=== PATIENT | male | born 1955 | race Caucasian/White ===

== ENCOUNTER 2016-03-27 08:11 | Inpatient (IN) | payer OTHER ==
[~2016-03-27] VITALS: Ht 172.7 cm; Wt 122.5 kg
--- NOTE | 2016-03-27 08:16 | NUR ---
PT TO ED C/O LEFT FLANK PAIN X 8 DAYS. PT HAD OUT PATIENT CAT SCAN YESTERDAY, WAS CALLED BY HIS MD WHO TOLD HIM HE HAD AN OBSTRUCTING KIDNEY STONE.
--- NOTE | 2016-03-27 08:24 | ED GI/GU/ABDOMINAL COMPLAINT ---
History of Present Illness General Chief Complaint: General Adult Stated Complaint: KIDNEY STONES Source: patient, family Exam Limitations: no limitations Vital Signs & Intake/Output Vital Signs & Intake/Output Vital Signs Date Time Temp Pulse Resp B/P Pulse O2 O2 Flow FiO2 Ox Delivery Rate 03/31 1118 74 124/60 02/08 0803 98.2 70 20 124/60 94 Room Air 03/31 0045 98.0 74 20 140/70 94 Room Air 03/30 1613 97.8 78 19 102/60 94 ED Intake and Output 03/31 0000 03/30 1200 Intake Total 1610 600 Output Total 900 1550 Balance 710 -950 Intake, IV 850 600 Intake, Oral 760 0 Number 0 Bowel Movements Output, Urine 900 1550 Allergies Coded Allergies: ciprofloxacin (Intermediate, skin rash 03/31/16) cefazolin (HIVES 08/21/15) red dye (HIVES 08/21/15) Reconcile Medications Aspirin (Ecotrin*) 81 MG TABLET.DR 1 TAB PO DAILY HEART HEALTH (Reported) Atorvastatin Calcium 40 MG TABLET 1 TAB PO DAILY CHOLESTEROL (Reported) Metoprolol Succ XL (Toprol XL) 25 MG TAB 2 TAB PO DAILY HEART (Reported) Ramipril 5 MG CAPSULE 1 CAP PO DAILY HEART (Reported) Triage Note: PT TO ED C/O LEFT FLANK PAIN X 8 DAYS. PT HAD OUT PATIENT CAT SCAN YESTERDAY, WAS CALLED BY HIS MD WHO TOLD HIM HE HAD AN OBSTRUCTING KIDNEY STONE. Triage Nurses Notes Reviewed? yes Onset: Gradual Duration: day(s): (6) HPI: 61 year old male who started with abdominal pain/back pain last Tuesday. Patient initially thought it was the stomach bug as he had n/v and diarrhea. Also noted change in urine color. Saw his PCP Dr. Blanc yesterday who ordered outpatient CT scan and was reported to have left sided renal stone with blockage. History of renal stones in August, had lithotripsy by Dr. Hernandez. Told at that time that he had multiple stone. Past History Travel History Traveled to [place] past 21 day No Medical History Any Pertinent Medical History? see below for history Cardiovascular: HEART DISEASE Renal: KIDNEY STONES Surgical History Surgical History: lithotripsy Psychosocial History What is your primary language Macedonian Tobacco Use: Quit >30 days ago ETOH Use: occasional use Illicit Drug Use: denies illicit drug use Family History Hx Contributory? No Review of Systems Review of Systems Constitutional: Denies: chills, fever. EENTM: Reports: no symptoms. Respiratory: Reports: no symptoms. Cardiovascular: Reports: no symptoms. GI: Reports: abdominal pain, nausea. Genitourinary: Reports: see HPI (DARK URINE). Musculoskeletal: Denies: back pain, joint pain, muscle pain, muscle stiffness. Skin: Reports: no symptoms. Neurological/Psychological: Reports: no symptoms. Hematologic/Endocrine: Denies: bruising, bleeding, polyuria, polydipsia. Immunologic/Allergic: Denies: splenectomy. All Other Systems: Reviewed and Negative Physical Exam Physical Exam General Appearance: well developed/nourished, alert, awake Head: atraumatic, normal appearance Eyes: Bilateral: normal appearance, PERRL, EOMI. Ears, Nose, Throat, Mouth: moist mucous membrane Neck: normal inspection, supple, full range of motion Respiratory: normal breath sounds, chest non-tender, no respiratory distress Cardiovascular: regular rate/rhythm Peripheral Pulses: 2+ radial (R), 2+ radial (L) Gastrointestinal: normal bowel sounds, soft, non-tender, OBESE Back: normal inspection, normal range of motion, NO CVA TENDERNESS Extremities: normal range of motion Neurologic/Psych: no motor/sensory deficits, awake, alert, oriented x 3, normal gait Skin: intact, normal color, warm/dry Core Measures ACS in differential dx? No Severe Sepsis Present: No Septic Shock Present: No Progress Differential Diagnosis: ureterolithiasis, UTI/pyelo, OBSTRUCTIVE UROPAHTY, JULIANA, INFECTION, VOLUME DEPLETION, SEPSIS, DEHYDRATION, HYPOVOLEMIA, JULIANA, SEPSIS Plan of Care: Orders Procedure Date/time Status Anticipated Discharge 03/31 UNK Active Current Medications Sig/Jayden Start time Last Medication Dose Stop Time Status Admin Amoxicillin 500 MG BID 03/31 1128 UNVr (Amoxil) Tramadol HCl 50 MG Q6P PRN 03/31 0830 AC (Ultram) Laboratory Tests 03/31/16 0630: Anion Gap 7, Estimated GFR > 60, BUN/Creatinine Ratio 17.3, Total Bilirubin 0.8, Direct Bilirubin 0.5 H, AST 176 H, ALT 318 H, Alkaline Phosphatase 152 H, Total Protein 4.9 L, Albumin 2.7 L, CBC w Diff NO MAN DIFF REQ, RBC 4.03 L, MCV 89.7, MCH 29.5, RDW 14.7 H, MPV 7.6, Gran % 72.6, Lymphocytes % 16.6 L, Monocytes % 5.5, Eosinophils % 5.0, Basophils % 0.3, Absolute Granulocytes 7.7 H, Absolute Lymphocytes 1.8, Absolute Monocytes 0.6, Absolute Eosinophils 0.5, Absolute Basophils 0, PUBS MCHC 32.9 L NS BOLUX 2, IV ZOFRNA ORDERED. IV TYLENOL, IV CIPRO ORDERED. D/W HOSPITALIST AND DR BAUM. PATIENT TO GO TO OR FROM ED AND THEN WILL GO TO THE FLOORS. LIKELY FOR STENT PLACEMENT. (TERELL DO,TODD) Initial ED EKG: NSR, INFERIOR Q WAVES, T WAVES INVERSIONS Departure Departure Time of Disposition: 948 Disposition: STILL A PATIENT Condition: Stable Clinical Impression Primary Impression: JULIANA (acute kidney injury) Secondary Impressions: Obstructive uropathy Referrals: FILI DO,ROQUE Becker (PCP/Family) Departure Forms: Customer Survey General Discharge Information Admission Note Spoke With: PIA DO,ANGELA Documentation of Exam: Documentation of any treatments & extenuating circumstances including Concerns Regarding Discharge (functional status, medication knowledge or non-compliance, living conditions, etc.) that warrant an admission rather than observation: [IV fluids, IV antibiotic and by mouth, monitor intake and output, follow-up cultures, renal consultation for possible stent versus lithotripsy]
--- NOTE | 2016-03-27 08:37 | NUR ---
IV FLUIDS INFUSING DIRECTED BLOOD AND URINE SENT TO LAB
[2016-03-27 08:48] LABS: ABSOLUTE BASOPHIL COUNT 0 /CUMM (0.0-0.2); ABSOLUTE EOSINOPHIL COUNT 0 /CUMM (0.0-0.7); ABSOLUTE GRANULOCYTE CT 10.7 /CUMM (1.4-6.5); ABSOLUTE LYMPH COUNT 0.4 /CUMM (1.2-3.4); ABSOLUTE MONOCYTE COUNT 0.4 /CUMM (0.10-0.60); BASOPHIL % 0.2 % (0.0-2.0); EOSINOPHIL % 0.3 % (0-5); GRANULOCYTE % 92.5 % (42.2-75.2); HEMATOCRIT 47.8 % (42-52); MEAN CORPUSCULAR HGB 29.6 PG (27.0-31.0); MEAN CORPUSCULAR HGB CONC 33.3 G/DL (33.0-37.0); MEAN PLATELET VOLUME 7.5 FL (7.4-10.4); PLATELET COUNT 266 /CUMM (130-400); RBC DISTRIBUTION WIDTH 14.5 % (11.5-14.5); RED BLOOD CELL CT 5.38 /CUMM (4.70-6.10); WHITE BLOOD CELL COUNT 11.6 /CUMM (4.8-10.8)
[2016-03-27] MEDS ORDERED: TOPROL XL25 M1 PO (09:26)
[2016-03-27] MEDS ORDERED: ATORVASTATIN CA40 M1 PO (09:28)
[2016-03-27] MEDS ORDERED: RAMIPRIL5 M1 PO (09:28)
[2016-03-27] MEDS ORDERED: ASPIRIN EC81 M1 PO (09:28)
--- NOTE | 2016-03-27 09:42 | NUR ---
SECOND LITER INFUSING DIRECTED PT GIVEN APAP IV FOR FEVER OF 101.8
--- NOTE | 2016-03-27 10:37 | NUR ---
BED 216-1
--- NOTE | 2016-03-27 11:03 | NUR ---
SURGICAL SCUB COMPLETED TRANSPORT HERE TO TAKE TO OR
--- NOTE | 2016-03-27 11:06 | NUR ---
SURGICAL SCRUB COMPLETED CIPRO INFUSING DIRECTED
--- NOTE | 2016-03-27 11:26 | Cons- Urology ---
General Information and HPI Consulting Request Date of Consult: 03/27/16 Requested By: Md Howard, ER Reason for Consult: left obstructed kidney with sepsis Source of Information: patient Exam Limitations: no limitations History of Present Illness: 61 y/o with left obstrect kidney due to large UPJ stone: fever, sepsis. requires stent hermelinda Allergies/Medications Allergies: Coded Allergies: cefazolin (HIVES 08/21/15) red dye (HIVES 08/21/15) Home Med List: Aspirin (Ecotrin*) 81 MG TABLET.DR 1 TAB PO DAILY HEART HEALTH (Reported) Atorvastatin Calcium 40 MG TABLET 1 TAB PO DAILY CHOLESTEROL (Reported) Metoprolol Succ XL (Toprol XL) 25 MG TAB 2 TAB PO DAILY HEART (Reported) Ramipril 5 MG CAPSULE 1 CAP PO DAILY HEART (Reported) Current Medications: Current Medications Sig/Jayden Start time Last Medication Dose Route Stop Time Status Admin Acetaminophen 0 .STK-MED ONE 03/27 0939 DC IV Acetaminophen 1,000 MG ONCE ONE 03/27 0930 DC 03/27 N/A 1 UNIT IV 03/27 0944 0942 Aspirin Buffered 81 MG DAILY 03/28 1000 AC PO Atorvastatin Calcium 40 MG DAILY 03/28 1000 AC PO Ciprofloxacin 400 MG ONCE ONE 03/27 0930 DC 03/27 IV 03/27 0931 0954 Enoxaparin Sodium 40 MG DAILY 03/27 1010 DC SC Heparin Sodium 5,000 UNIT Q8 03/27 1400 AC (Porcine) SC Lisinopril 10 MG DAILY 03/28 1000 AC PO Metoprolol Succinate 50 MG DAILY 03/28 1000 AC PO Ondansetron HCl 4 MG ONCE ONE 03/27 0900 DC 03/27 IV 03/27 0901 0900 Ondansetron HCl 0 .STK-MED ONE 03/27 0852 DC .ROUTE Patient Medication 1 UNIT ONE NR 03/27 1100 Teaching ED 03/27 1130 Patient Medication 1 UNIT ONE NR 03/27 1100 Teaching ED 03/27 1130 Patient Medication 1 UNIT ONE NR 03/27 1100 [facility] ED 03/27 1130 Sodium Chloride 1,000 ML BOLUS ONE 03/27 0900 DC 03/27 IV 03/27 0959 0942 Sodium Chloride 1,000 ML BOLUS ONE 03/27 0830 DC 03/27 IV 03/27 0929 0837 Past History Medical History Cardiovascular: HEART DISEASE Renal: KIDNEY STONES Surgical History Pertinent Surgical History: lithotripsy Psychosocial History ETOH Use: occasional use Illicit Drug Use: denies illicit drug use Employment History Retired? no Review of Systems Review of Systems Constitutional: Reports: chills. EENTM: Denies: no symptoms. Cardiovascular: Denies: no symptoms. Respiratory: Denies: no symptoms. Genitourinary: Denies: no symptoms. Musculoskeletal: Denies: no symptoms. Skin: Denies: no symptoms. Exam & Diagnostic Data Vital Signs and I&O Vital Signs Date Time Temp Pulse Resp B/P Pulse O2 O2 Flow FiO2 Ox Delivery Rate 03/27 1012 100.2 03/27 1007 100.2 104 18 96 Room Air 03/27 0947 108/60 03/27 0942 101.8 03/27 0920 101.8 100 22 105/56 96 Room Air 03/27 0840 98 03/27 0814 96.6 108 20 86/58 96 Room Air Intake & Output 03/27 1600 03/27 0800 03/27 0000 03/26 1600 03/26 0800 03/26 0000 Intake Total 2100 Output Total Balance 2100 Intake, IV 2100 Patient 270 lb Weight Physical Exam General Appearance: well developed/nourished, no apparent distress Head: atraumatic Eyes: Bilateral: normal appearance. Ears, Nose, Throat: normal pharynx Neck: normal inspection Respiratory: normal breath sounds Cardiovascular: regular rate/rhythm Gastrointestinal: normal bowel sounds Back: CVA tenderness (L) Extremities: normal inspection Skin: intact, normal color Reproductive: Normal male genitalia Last 24 Hours of Labs: Laboratory Tests 03/27 0832 Chemistry Sodium (137 - 145 mmol/L) 136 L Potassium (3.5 - 5.1 mmol/L) 4.3 Chloride (98 - 107 mmol/L) 102 Carbon Dioxide (22 - 30 mmol/L) 20 L Anion Gap (5 - 16) 14 BUN (9 - 20 mg/dL) 45 H Creatinine (0.7 - 1.2 mg/dL) 2.6 H Estimated GFR (>60 ml/min) 25 L BUN/Creatinine Ratio (7 - 25 %) 17.3 Glucose (65 - 99 mg/dL) 141 H Calcium (8.4 - 10.2 mg/dL) 8.6 Total Bilirubin (0.2 - 1.3 mg/dL) 1.4 H AST (17 - 59 U/L) 283 H ALT (21 - 72 U/L) 367 H Alkaline Phosphatase (< 127 U/L) 220 H Troponin I (<0.11 ng/ml) 0.01 Total Protein (6.3 - 8.2 g/dL) 6.1 L Albumin (3.5 - 5.0 g/dL) 3.5 Globulin (1.9 - 4.2 gm/dL) 2.6 Albumin/Globulin Ratio (1.1 - 2.2 %) 1.3 Hematology CBC w Diff MAN DIFF ORDERED WBC (4.8 - 10.8 /CUMM) 11.6 H RBC (4.70 - 6.10 /CUMM) 5.38 Hgb (14.0 - 18.0 G/DL) 15.9 Hct (42 - 52 %) 47.8 MCV (80.0 - 94.0 FL) 89.0 MCH (27.0 - 31.0 PG) 29.6 RDW (11.5 - 14.5 %) 14.5 Plt Count (130 - 400 /CUMM) 266 MPV (7.4 - 10.4 FL) 7.5 Gran % (42.2 - 75.2 %) 92.5 H Lymphocytes % (20.5 - 51.1 %) 3.5 L Monocytes % (1.7 - 9.3 %) 3.5 Eosinophils % (0 - 5 %) 0.3 Basophils % (0.0 - 2.0 %) 0.2 Absolute Granulocytes (1.4 - 6.5 /CUMM) 10.7 H Segmented Neutrophils (42.2 - 75.2 %) 87 H Band Neutrophils (0.0 - 5.0 %) 5 Absolute Lymphocytes (1.2 - 3.4 /CUMM) 0.4 L Lymphocytes (20.5 - 51.1 %) 2 L Monocytes (1.7 - 9.3 %) 5 Absolute Monocytes (0.10 - 0.60 /CUMM) 0.4 Eosinophils (0 - 5.0 %) 1 Absolute Eosinophils (0.0 - 0.7 /CUMM) 0 Absolute Basophils (0.0 - 0.2 /CUMM) 0 Platelet Estimate (ADEQUATE) VERIFIED BY SMEAR Normocytic RBCs VERIFIED Normochromic RBCs VERIFIED PUBS MCHC (33.0 - 37.0 G/DL) 33.3 Urines Urinalysis MOD H Urine Color (YEL,AMB,STR) YEL Urine Clarity (CLEAR) HAZY H Urine pH (5.0 - 8.0) 6.0 Ur Specific Seale (1.001 - 1.035) 1.020 Urine Protein (NEG,<30 MG/DL) 100 H Urine Ketones (NEG) NEG Urine Nitrite (NEG) NEG Urine Bilirubin (NEG) NEG@ICTO Urine Urobilinogen (0.1 - 1.0 EU/dl) 1.0 Ur Leukocyte Esterase (NEG) NEG Ur Microscopic SEDIMENT EXAMINED Urine RBC (0 - 5 /HPF) 1-3 Urine WBC (0 - 2 /HPF) 3-5 H Ur Epithelial Cells (NONE,FEW) FEW Granular Casts (NONE /LPF) FEW H Urine Hemoglobin (NEG) SMALL H Urine Glucose (N MG/DL) NEG Imaging Results: PATIENT: CECILE WINKLER PRESENT AGE: 60 PATIENT ACCOUNT NO: [id number] : 54 LOCATION: [facility] ORDERING PHYSICIAN: GRUPO HERNANDEZ MD SERVICE DATE: 08/22/15- EXAM TYPE: RAD - [id number] VIEW EXAMINATION: XR ABDOMEN CLINICAL INDICATION: Intraoperative imaging. COMPARISON: None. TECHNIQUE: Multiple intraoperative fluoroscopic images were obtained under the supervision of Dr. Hernandez. Total fluoroscopic time 0.4 minutes. FINDINGS/IMPRESSION: Intraoperative imaging shows progression of instrumentation for placement of a left ureteral stent. There is cannulation and retrograde opacification of the right renal collecting system, with some prominence of the right renal calyces. No extravasation of contrast. No acute complication demonstrated. Please refer to Dr. Hernandez's procedure well. Assessment/Plan Assessment/Plan left obstructed kidney with sepsis./emergent left stent Copies To: JARRET BAUM MD Consult Acknowledgment - Thank you for your consult request. Attending MD Review Statement Attending Statement Attending MD Statement: examined this patient, discuss w/resident/PA/BATTERY INSPECTOR Attending Assessment/Plan: pt with left obst, kidney with sepsis: requries stent.
--- NOTE | 2016-03-27 12:03 | History & Physical ---
PRINCESSLENAJACKI 03/27/16 1123: General Information and HPI MD Statement: I have seen and personally examined CECILE WINKLER and documented this H&P. The patient is a 61 year old M who presented with a patient stated chief complaint of [abdominal pain]. Source of Information: patient, family Exam Limitations: no limitations History of Present Illness: Patient is a 61-year-old male with past medical history of nephrolithiasis status post lithotripsy and left renal stent placement in July [address] Hernandez, hypertension, hyperlipidemia, coronary artery disease who was sent in by his PCP for obstructive uropathy. Patient stated that he has been having pain in his back since last Tuesday. The pain was at the center of his back, intermittent, 4/10 in intensity and sharp in nature. He has some nausea and epigastric discomfort with loose stools for 1 day. Pain continued and radiated to his epigastric region. He denied any fevers, chills, chest pain, palpitations, urinary discomfort, or hematuria. He has been taking Tylenol every 4 hours for the past 7 days for pain relief. He was seen by his PCPPCP Dr. Blanc yesterday who ordered outpatient CT scan and was reported to have left sided renal stone with blockage.Of note, patient has a history of renal stones and in June 2015 he had an episode of abdominal pain/obstruction resulting in bilateral stent placements in [facility]. In July 2015, he had another episode of obstructive uropathy and had a lithotripsy done by Dr. Hernandez with removal of bilateral stents, and placement of a single left-sided stent. Vital ED in the ED showed temperature of 9001.8, pulse 100, respiration 22, blood pressure 105/56, saturating 96% on room air. Labs showed a white count of 11.6 with 5 bands, sodium 136, potassium 4.3, BUN 45, creatinine 2.6(no baseline), total bili 1.4, AST 283, ALT 367, alkaline phosphatase 220, troponin negative UA: Hazy, negative nitrite, negative leukocyte esterase, 3-5 white cells, granular casts few Abdominal x-ray: Left-sided urethral stent, cannulation and opacification of right renal collecting system, with some prominence of right renal calyces. Patient received 2 L bolus normal saline, IV ciprofloxacin, IV Zofran in the day. Allergies/Medications Allergies: Coded Allergies: cefazolin (HIVES 08/21/15) red dye (HIVES 08/21/15) Home Med list Aspirin (Ecotrin*) 81 MG TABLET.DR 1 TAB PO DAILY HEART HEALTH (Reported) Atorvastatin Calcium 40 MG TABLET 1 TAB PO DAILY CHOLESTEROL (Reported) Metoprolol Succ XL (Toprol XL) 25 MG TAB 2 TAB PO DAILY HEART (Reported) Ramipril 5 MG CAPSULE 1 CAP PO DAILY HEART (Reported) Past History Travel History Traveled to [place] past 21 day No Medical History Cardiovascular: HEART DISEASE Renal: KIDNEY STONES Surgical History Surgical History: lithotripsy Past Family/Social History Psychosocial History ETOH Use: occasional use Illicit Drug Use: denies illicit drug use Review of Systems Review of Systems Constitutional: Reports: malaise, unexplained weight loss. EENTM: Reports: no symptoms. Cardiovascular: Reports: no symptoms. Respiratory: Reports: no symptoms. GI: Reports: abdominal pain, changes in stool. Genitourinary: Reports: no symptoms. Musculoskeletal: Reports: back pain. Skin: Reports: no symptoms. Neurological/Psychological: Reports: no symptoms. Exam & Diagnostic Data Last 24 Hrs of Vital Signs/I&O Vital Signs Date Time Temp Pulse Resp B/P Pulse O2 O2 Flow FiO2 Ox Delivery Rate 03/27 1012 100.2 03/27 1007 100.2 104 18 96 Room Air 03/27 0947 108/60 / 0942 101.8 / 0920 101.8 100 22 105/56 96 Room Air 03/27 0840 98 / 0814 96.6 108 20 86/58 96 Room Air Intake & Output 03/27 1600 03/27 0800 03/27 0000 Intake Total 2100 Output Total Balance 2100 Intake, IV 2100 Patient 122.47 kg Weight Physical Exam General Appearance Alert, Oriented X3, Cooperative, Mild Distress, obese Skin No Rashes, No Breakdown, No Significant Lesion HEENT Atraumatic, PERRLA, EOMI Neck Supple, No JVD Lymphatic Cervical nl Cardiovascular Regular Rate, Normal S1, Normal S2, No Murmurs Lungs Clear to Auscultation, Normal Air Movement Abdomen Normal Bowel Sounds, Soft, No Tenderness, no CVA tenderness Neurological Normal Gait, Normal Speech, Strength at 5/5 X4 Ext, Normal Tone, Sensation Intact Extremities No Clubbing, No Cyanosis, No Edema, Normal Pulses Last 24 Hrs of Labs/Juan: Laboratory Tests 03/27/16 0832: Anion Gap 14, Estimated GFR 25 L, BUN/Creatinine Ratio 17.3, Glucose 141 H, Calcium 8.6, Total Bilirubin 1.4 H, AST 283 H, ALT 367 H, Alkaline Phosphatase 220 H, Troponin I 0.01, Total Protein 6.1 L, Albumin 3.5, Globulin 2.6, Albumin/Globulin Ratio 1.3, CBC w Diff MAN DIFF ORDERED, RBC 5.38, MCV 89.0 , MCH 29.6, RDW 14.5, MPV 7.5, Gran % 92.5 H, Lymphocytes % 3.5 L, Monocytes % 3.5, Eosinophils % 0.3, Basophils % 0.2, Absolute Granulocytes 10.7 H, Segmented Neutrophils 87 H, Band Neutrophils 5, Absolute Lymphocytes 0.4 L, Lymphocytes 2 L, Monocytes 5, Absolute Monocytes 0.4, Eosinophils 1, Absolute Eosinophils 0, Absolute Basophils 0, Platelet Estimate VERIFIED BY SMEAR, Normocytic RBCs VERIFIED, Normochromic RBCs VERIFIED, PUBS MCHC 33.3, Urinalysis MOD H, Urine Color YEL, Urine Clarity HAZY H, Urine pH 6.0, Ur Specific Vernon 1.020, Urine Protein 100 H, Urine Ketones NEG, Urine Nitrite NEG, Urine Bilirubin NEG@ICTO, Urine Urobilinogen 1.0, Ur Leukocyte Esterase NEG, Ur Microscopic SEDIMENT EXAMINED, Urine RBC 1-3, Urine WBC 3-5 H, Ur Epithelial Cells FEW, Granular Casts FEW H, Urine Hemoglobin SMALL H, Urine Glucose NEG Microbiology 03/27 0934 BLOOD: Blood Culture - RECD 03/27 0924 BLOOD: Blood Culture - RECD 03/27 0825 URINE ROUT: Urine Culture - RECD Assessment/Plan Assessment: porsha is a 61-year-old male with past medical history of nephrolithiasis status post lithotripsy and left renal stent placement in July [address] Hernandez, hypertension, hyperlipidemia, coronary artery disease who was sent in by his PCP for obstructive uropathy. Vital ED in the ED showed temperature of 101.8, pulse 100, respiration 22, blood pressure 105/56, saturating 96% on room air. Labs showed a white count of 11.6 with 5 bands, sodium 136, potassium 4.3, BUN 45, creatinine 2.6(no baseline), total bili 1.4, AST 283, ALT 367, alkaline phosphatase 220, troponin negative,L lactate 1.5 UA: Hazy, negative nitrite, negative leukocyte esterase, 3-5 white cells, granular casts few Abdominal x-ray: Left-sided urethral stent, cannulation and opacification of right renal collecting system, with some prominence of right renal calyces. Patient received 2 L bolus normal saline, IV ciprofloxacin, IV Zofran in the day. Plan: 1. Sepsis secondary to left-sided obstructive uropathy: Fever, tachycardia with kidney being the source of infection. Lactate normal. X-ray evidence of right- sided hydronephrosis with left ureteral stenting. -Patient received 2 L IV normal saline boluses in the ED and IV ciprofloxacin. -Has been taken to the OR by Dr. Dueñas for emergent stent placement for relieving the obstruction. -We'll continue IV ciprofloxacin post OR. -Blood/urine cultures pending -Continue IV morphine for pain(no Tylenol for details to LFTs/no Motrin for kidney injury) -Urology consultation appreciated 2. JULIANA secondary to obstructive uropathy -Creatinine 2.7(no baseline value) -Emergent stent placement for relieving obstruction -Repeat BeP in a.m. -Avoid nephrotoxins 3. Transaminitis: Elevated LFTs. Patient drinks 1 shot of vodka every day. Frequent use of Tylenol in the last 7 days. -Repeat LFTs in a.m. -No Tylenol/no statins for now -Ultrasound abdomen if LFTs continue to remain elevated 4. Hypertension -Continue home dose of metoprolol and ramipril once sepsis resolves and BP stable. 5. Hyperlipidemia -We will hold statins for now for liver damage DVT prophylaxis subcutaneous heparin Heart healthy diet Severe pain pathway with IV morphine as needed Full code As Ranked By This Provider Problem List: 1. Ureteral stone with hydronephrosis 2. Hydronephrosis 3. Obstructive uropathy 4. JULIANA (acute kidney injury) Core Measures/Miscellaneous Acute Coronary Syndrome ACS Diagnosis: No Cerebrovascular Accident CVA/TIA Diagnosis: No Congestive Heart Failure CHF Diagnosis: No Venous Thromboembolism VTE Risk Factors: Age > 40 VTE Prophylaxis Ordered Inpt: Pharm- Heparin No Mech VTE prophylaxis d/t: No contraindications No VTE Pharm Prophylaxis d/t: No contraindications VTE Diagnosis: No VTE Type: NONE VTE Confirmed by (Test): NONE Severe Sepsis Severe Sepsis Present: No Septic Shock Septic Shock Present: No Miscellaneous Documentation Attending Case Discussed With: ANGELA PALACIO MD Primary Care Physician: ROQUE BLANC MD Patient sees these Specialists Dr. Hernandez Level of Patient Care: General Medicine ANGELA PALACIO MD 03/27/16 1837: Attending MD Review Statement Attending Statement Attending MD Statement: examined this patient, discuss w/resident/PA/COMMUNITY SERVICES OFFICER, agreed w/resident/PA/COMMUNITY SERVICES OFFICER, discussed with family, reviewed EMR data (avail), discussed with nursing, reviewed images, amended to note Attending Assessment/Plan: 61 y/o M with pmh sig for nephrolithiasis status post lithotripsy and left renal stent placement in July [address] Hernandez, hypertension, hyperlipidemia, coronary artery disease, who has been having back pain with some n/v since one week, His PCP ordered CT abd/pelvis which showed obstructing renal calculus at UPJ. Therefore pt was sent to ER where he was found to be in acute renal failure and febrile/ tachycardic. Dr. Dueñas was consulted and pt taken to OR for ureteral stent. Vital Signs Date Time Temp Pulse Resp B/P Pulse O2 O2 Flow FiO2 Ox Delivery Rate 03/27 1356 100.9 107 24 112/78 94 Room Air Room Air 03/27 1012 100.2 03/27 1007 100.2 104 18 96 Room Air 03/27 0947 108/60 03/27 0942 101.8 03/27 0920 101.8 100 22 105/56 96 Room Air 03/27 0840 98 03/27 0814 96.6 108 20 86/58 96 Room Air on exam; aox3, nad. cv; s1, s2, rrr. tachy. resp; clear abd; soft, nt, bs+ ext; no edema. Laboratory Tests 03/27 0832 Chemistry Sodium (137 - 145 mmol/L) 136 L Potassium (3.5 - 5.1 mmol/L) 4.3 Chloride (98 - 107 mmol/L) 102 Carbon Dioxide (22 - 30 mmol/L) 20 L Anion Gap (5 - 16) 14 BUN (9 - 20 mg/dL) 45 H Creatinine (0.7 - 1.2 mg/dL) 2.6 H Estimated GFR (>60 ml/min) 25 L BUN/Creatinine Ratio (7 - 25 %) 17.3 Glucose (65 - 99 mg/dL) 141 H Lactic Acid (0.7 - 2.1 mmol/L) 1.5 Calcium (8.4 - 10.2 mg/dL) 8.6 Total Bilirubin (0.2 - 1.3 mg/dL) 1.4 H AST (17 - 59 U/L) 283 H ALT (21 - 72 U/L) 367 H Alkaline Phosphatase (< 127 U/L) 220 H Troponin I (<0.11 ng/ml) 0.01 Total Protein (6.3 - 8.2 g/dL) 6.1 L Albumin (3.5 - 5.0 g/dL) 3.5 Globulin (1.9 - 4.2 gm/dL) 2.6 Albumin/Globulin Ratio (1.1 - 2.2 %) 1.3 Hematology CBC w Diff MAN DIFF ORDERED WBC (4.8 - 10.8 /CUMM) 11.6 H RBC (4.70 - 6.10 /CUMM) 5.38 Hgb (14.0 - 18.0 G/DL) 15.9 Hct (42 - 52 %) 47.8 MCV (80.0 - 94.0 FL) 89.0 MCH (27.0 - 31.0 PG) 29.6 RDW (11.5 - 14.5 %) 14.5 Plt Count (130 - 400 /CUMM) 266 MPV (7.4 - 10.4 FL) 7.5 Gran % (42.2 - 75.2 %) 92.5 H Lymphocytes % (20.5 - 51.1 %) 3.5 L Monocytes % (1.7 - 9.3 %) 3.5 Eosinophils % (0 - 5 %) 0.3 Basophils % (0.0 - 2.0 %) 0.2 Absolute Granulocytes (1.4 - 6.5 /CUMM) 10.7 H Segmented Neutrophils (42.2 - 75.2 %) 87 H Band Neutrophils (0.0 - 5.0 %) 5 Absolute Lymphocytes (1.2 - 3.4 /CUMM) 0.4 L Lymphocytes (20.5 - 51.1 %) 2 L Monocytes (1.7 - 9.3 %) 5 Absolute Monocytes (0.10 - 0.60 /CUMM) 0.4 Eosinophils (0 - 5.0 %) 1 Absolute Eosinophils (0.0 - 0.7 /CUMM) 0 Absolute Basophils (0.0 - 0.2 /CUMM) 0 Platelet Estimate (ADEQUATE) VERIFIED BY SMEAR Normocytic RBCs VERIFIED Normochromic RBCs VERIFIED PUBS MCHC (33.0 - 37.0 G/DL) 33.3 Urines Urinalysis MOD H Urine Color (YEL,AMB,STR) YEL Urine Clarity (CLEAR) HAZY H Urine pH (5.0 - 8.0) 6.0 Ur Specific Vernon (1.001 - 1.035) 1.020 Urine Protein (NEG,<30 MG/DL) 100 H Urine Ketones (NEG) NEG Urine Nitrite (NEG) NEG Urine Bilirubin (NEG) NEG@ICTO Urine Urobilinogen (0.1 - 1.0 EU/dl) 1.0 Ur Leukocyte Esterase (NEG) NEG Ur Microscopic SEDIMENT EXAMINED Urine RBC (0 - 5 /HPF) 1-3 Urine WBC (0 - 2 /HPF) 3-5 H Ur Epithelial Cells (NONE,FEW) FEW Granular Casts (NONE /LPF) FEW H Urine Hemoglobin (NEG) SMALL H Urine Glucose (N MG/DL) NEG All imaging reviewed. A/P; 1 y/o M with pmh sig for nephrolithiasis status post lithotripsy and left renal stent placement in July [address] Hernandez, hypertension, hyperlipidemia, coronary artery disease admitted with sepsis likely 2/2 to UTI, Acute renal failure 2/2 to obstructive uropathy, as well as transaminiytis. Pt had yaken large amounts of tylenol over the last week for the back pain. Pt admitted to med floor S/P Ureteral stent placement by Dr. Dueñas. Will continue IV gentle IV hydration, pain mx. Started on IV abx, will follow up on cx. Avoid nephritoxics NSAIDS. Low dose tylenol can be given for fevers. Holding Joe for now, will reevaluate in am. Abd US consistent with fatty liver. Continue other home meds. DVT Px; Hep sq. Full code.
[2016-03-27 13:56] VITALS: BP 112/78
--- NOTE | 2016-03-27 15:18 | Operative Report ---
Operative/Inv Procedure Report Surgery Date: 03/27/16 Name of Procedure: cysto: left stent insertion Pre-Operative Diagnosis: severe left renal colic, ARF. Post-Operative Diagnosis: left hydro: 7mm stone at UPJ Estimated Blood Loss: scant Surgeon/Nail Cutter: MD BAUTISTA, [facility] Anesthesia: moderate sedation Implants: [id number] BARD ONLAY STENT Specimens: NONE Complications: NONE Condition: IMPROVED:PAIN FREE Operative Indication: ARF. LEFT RENAL COLIC WITH HX STONES. Operative/Procedure Note Note: The patient was taken to the operating room and placed on the OR table in supine position. Timeout was performed, with the patient awake, in order to confirm correct:identity, procedure, antibiotics, anesthesia, and other pertinent information. After adequate anesthesia and antibiotics, the patient was placed in lithotomy stirrups, then draped and prepped in the usual surgical fashion. A 22 Latvian cystoscope sheath with 30 angle lens was inserted into the urethra without difficulty. Upon entering the prostatic urethra, the prostate was noted to have mild coapting lateral lobes, and mild to moderately enlarged middle lobe of the prostate. Upon entering the bladder, the bladder was noted to be free of tumor, free of stone, and mildly trabeculated. With clear reflux from the right ureteral orifice, and no reflux from the left despite peristalsis. Under direct visualization the left orifice was intubated with a 5 Latvian tiger -tail catheter. With fluoroscopic visualization, a gentle retrograde pyelogram was performed. The patient was noted to have a left hydronephrosis, and 7 mm UPJ filling defect. The tiger tail catheter was removed, and the contrast was noted to have delayed drainage from the left hydronephrotic kidney. The left orifice was intubated with a 0.035 Glidewire, which was advanced with fluoroscopic visualization into left renal pelvis, bypassing the UPJ stone. A 6 x 22 Bard Onlay stent was railroaded over the Glidewire, which was easily advanced into the left renal pelvis. Once the stent was in good position, the Glidewire was removed, and the stent remained in good position. The bladder was drained via the cystoscope sheath, which was subsequently removed. Urojet lidocaine was instilled into the urethra, and the penis was clamped for only 5 minutes. All sponge and instrument count were correct at the end of the case. The patient tolerated procedure well, and was taken to the recovery room in satisfactory condition. Discharge Disposition: PACU Additional Comments: PT. ADMITTED TO MEDICINE FOR HYPOTENSIVE SEPSIS AND ACUTE RENAL FAILURE CC: DONI DO,GRUPO; JARRET BAUM MD
--- NOTE | 2016-03-27 16:13 | RADIOLOGY REPORT ---
EXAMINATION: XR ABDOMEN CLINICAL INDICATION: Cystoscopy for obstruction. COMPARISON: None TECHNIQUE: 0.6 minutes of intraoperative fluoroscopy time provided. FINDINGS: Serial hard copies from an operative portable C-arm exam demonstrates a cystoscope in place. Cannulation of the left urinary collecting system retrograde injection of contrast images is no defect within the proximal ureter just beyond the UPJ. There is obstruction proximal to this finding. Stent placed. IMPRESSION: Filling defect just beyond the UPJ resulting in obstruction as above. Stent placement.
--- NOTE | 2016-03-27 17:05 | ULTRASOUND REPORT ---
EXAMINATION: US ABDOMEN LIMITED CLINICAL INFORMATION: Transaminitis; question hepatic pathology. COMPARISON: None TECHNIQUE: Real-time imaging of the right upper quadrant abdominal viscera. FINDINGS: PANCREAS: Largely obscured by overlapping bowel gas. LIVER: The liver demonstrates normal size, contour and generalized increase in echogenicity. No focal lesion or intrahepatic biliary duct dilatation. GALLBLADDER: Normal. The gallbladder is physiologically distended without evidence of stones, sludge, polyps, wall thickening or pericholecystic fluid. COMMON BILE DUCT: Normal in caliber measuring 0.6 cm in diameter. RIGHT KIDNEY: There is mild pelviectasis, without cedric hydronephrosis. No renal calculi or focal parenchymal lesions. The kidney measures 10.7 cm in maximum dimension. FREE FLUID: None. IMPRESSION: 1. There is generalized increase in hepatic echotexture, consistent with fatty infiltration or hepatocellular disease. Please correlate clinically. No focal hepatic mass or intrahepatic biliary dilatation is seen. 2. There is mild right renal pelviectasis, without cedric hydronephrosis. 3. Ultrasound evaluation of the pancreas is limited by overlapping bowel gas.
--- NOTE | 2016-03-27 18:36 | Admission Certification ---
Admission Certification Certification Statement - As attending physician, I certify that at the time of - admission, based on clinical presentation, severity of - symptoms, need for further diagnostic testing and - therapeutic interventions, and risk of adverse outcomes - without in-hospital treatment, in my clinical assessment, - this patient requires an acute hospital stay for a minimum - of two nights or longer. I have also considered psychsocial - factors such as support system, advanced age, financial - issues, cognitive issues, and failed out-patient treatments, - past re-admission history, safety of patient, and lack of - compliance as applicable. Specific rationale supporting this admission is: Patient admitted with sepsis, uti, acute renal failure 2/2 to obstructive uropathy.
[2016-03-27 23:55] VITALS: BP 86/49
--- NOTE | 2016-03-28 00:02 | NUR ---
PT HYPOTENSIVE 87/46. HR 84. AFEBRILE, ASYMPTOMATIC, DR. GABRIEL NOTIFIED, ORDERED 500 ML BOLUS. WILL RECHECK BP
[2016-03-28 01:26] VITALS: BP 78/40
--- NOTE | 2016-03-28 01:27 | NUR ---
PT STILL HYPOTENSIVE AFTER BOLUS. DR. MONSALVE NOTIFIED. PT STILL ASYMPTOMATIC. PT TO HAVE 2ND 500 NS BOLUS AT THIS TIME
[2016-03-28 03:34] VITALS: BP 100/44
[2016-03-28 07:47] VITALS: BP 95/51
--- NOTE | 2016-03-28 09:06 | PN- Housestaff ---
KELSI VALERIO MD 03/28/16 0906: Subjective Follow-up For: Obstructive uropathy Sepsis Acute kidney injury Transaminitis Subjective: Patient seen and examined. He is seen sitting upright in bed resting comfortably. He appears mildly uncomfortable but in no acute distress. He is complaining of a rash on his lower abdomen that is described as nonpainful but itchy. He denies any associated swelling or shortness of breath of his hands/ tongue/mouth. He has no reported allergy to the antibiotic. He is also complaining of hiccups ever since the surgical intervention. Additionally he is complaining of urinary frequency/urgency with minimal amounts a scant red blood when he passes urine. Otherwise he denies any headache, fever, chills, chest pain, palpitations, shortness of breath, cough, nausea, vomiting, diarrhea. No overnight events reported other than above. Review of Systems Constitutional: Reports: see HPI. Objective Last 24 Hrs of Vital Signs/I&O Vital Signs Date Time Temp Pulse Resp B/P Pulse O2 O2 Flow FiO2 Ox Delivery Rate 03/28 0923 80 106/54 03/28 0747 98.4 88 20 95/51 92 Room Air 03/28 0334 100/44 03/28 0126 86 78/40 03/27 2355 99.0 86 24 86/49 91 / 1356 100.9 107 24 112/78 94 Room Air Room Air Intake & Output 03/28 1600 03/28 0800 03/28 0000 Intake Total 2300 800 Output Total 900 600 Balance 1400 200 Intake, IV 1900 400 Intake, Oral 400 400 Number 2 Bowel Movements Output, Urine 900 600 Physical Exam General Appearance: Alert, Oriented X3, Cooperative, No Acute Distress Other Physical Findings: General -well-developed, well-nourished obese middle-aged male in no acute distress HEENT - NCAT, PERRL, EOMI, anicteric sclera Neck - Supple Cardio - S1, S2 w/o murmurs/gallops/rubs Resp - CTA bilaterally w/o wheezing/rhochi/crackles GI - soft, obese, nontender, nondistended, bowel sounds present, red uticarial puritis rash on his lower abdomen without any excoriation, induration, or drainage Neuro - Awake and alert, CN II - XII grossly intact Extremities - no edema, pulses intact Skin - Chronic skin changes in his upper/lower extremityes Current Medications: Current Medications Sig/Jayden Start time Last Medication Dose Route Stop Time Status Admin Aspirin Buffered 81 MG DAILY 03/28 1000 AC 03/28 PO 0912 Atorvastatin Calcium 40 MG 1700 03/28 1700 AC PO Atorvastatin Calcium 40 MG DAILY 03/28 1000 CAN PO Calcium Carbonate 500 MG Q6P PRN 03/28 1200 AC PO Calcium Carbonate 500 MG ONCE ONE 03/28 0515 DC 03/28 PO 03/28 0516 0522 Ciprofloxacin 400 MG Q12 03/27 2200 DC 03/27 Dextrose/Water 200 ML IV 2143 Diphenhydramine HCl 25 MG ONCE ONE 03/28 0915 DC 03/28 PO 03/28 0916 0914 Fentanyl Citrate 100 MCG .STK-MED ONE 03/27 1123 DC IM 03/27 1124 Heparin Sodium 5,000 UNIT Q8 03/27 1400 AC 03/28 (Porcine) SC 0659 Hydromorphone HCl 2 MG .STK-MED ONE 03/27 1325 DC IM 03/27 1326 Lisinopril 10 MG DAILY 03/28 1000 CAN PO Melatonin 5 MG AT BEDTIME 03/27 2200 AC 03/27 PO 2142 Meperidine HCl 50 MG .STK-MED ONE 03/27 1304 DC IM 03/27 1305 Metoclopramide HCl 5 MG Q8 03/28 0952 AC PO Metoclopramide HCl 10 MG Q8 03/28 0927 CAN PO Metoprolol Succinate 50 MG DAILY 03/28 1000 AC PO Midazolam HCl 2 MG .STK-MED ONE 03/27 1124 DC IM 03/27 1125 Morphine Sulfate 2 MG Q4P PRN 03/27 1245 AC IV Patient Medication 1 UNIT ONE NR 03/27 1100 FL Teaching ED 03/27 1130 Patient Medication 1 UNIT ONE NR 03/27 1100 FL Teaching ED 03/27 1130 Patient Medication 1 UNIT ONE NR 03/27 1100 FL Teaching ED 03/27 1130 Sodium Chloride 1,000 ML BOLUS ONE 03/28 0130 DC 03/28 IV 03/28 0229 0130 Sodium Chloride 500 ML BOLUS ONE 03/27 2345 DC 03/28 IV 03/28 0044 0002 Sodium Chloride 1,000 ML Q13H 03/27 2000 DC 03/27 IV 03/28 0859 2200 Last 24 Hrs of Lab/Juan Results Last 24 Hrs of Labs/Mics: Laboratory Tests 03/28/16 0806: Anion Gap 9, Estimated GFR 28 L, BUN/Creatinine Ratio 22.1, Total Bilirubin 0.9 , Direct Bilirubin 0.8 H, AST 165 H, ALT 240 H, Alkaline Phosphatase 177 H, Total Protein 4.6 L, Albumin 2.5 L, CBC w Diff NO MAN DIFF REQ, RBC 4.17 L, MCV 89.1, MCH 29.7, RDW 14.6 H, MPV 7.8, Gran % 82.2 H, Lymphocytes % 6.3 L, Monocytes % 10.3 H, Eosinophils % 1.1, Basophils % 0.1, Absolute Granulocytes 8.5 H, Absolute Lymphocytes 0.7 L, Absolute Monocytes 1.1 H, Absolute Eosinophils 0.1, Absolute Basophils 0, PUBS MCHC 33.3 03/27/162038: Lactic Acid 1.5 Assessment/Plan Assessment: Patient reports persistent urinary symptoms ever since his stent placement yesterday. He denies any fever, chills and otherwise feels fine other than his complaints of hiccups and new onset rash. He is under the impression that he is to be discharged home today for which he was counseled that he needs to remain in the hospital for further treatment. Ciprofloxacin was held this morning for the new onset rash and patient was given Benadryl. Blood cultures returned positive for gram-positive cocci in chains and pairs suspicious for enterococcus. Vancomycin is started this finding. Urology data security consultant follow-up recommendations still pending. Problem list: -Obstructive uropathy, status post stent -Acute kidney injury -Sepsis, now resolved -Gram-positive cocci bacteremia, on vancomycin -Transaminitis Plan: -General medicine -Monitor vital signs for hemodynamic instability and fever -Monitor for signs of allergic reaction, continue to hold fluoroquinolones -Normal saline at 75 mL per hour -Continue vancomycin -Benadryl as needed for worsening rash -Follow-up culture and sensitivities -Avoid nephrotoxic medications such as NSAIDs for acute kidney injury -Continue home medications except beta senia and WALE inhibitor -DVT prophylaxis with subcutaneous heparin -Pain pathway -Healthy diet -Full code Problem List: 1. Obstructive uropathy Pain Ratin Pain Location: Right flank Pain Goal: Pain 4 or less Pain Plan: As noted in plan Tomorrow's Labs & Rationales: Complete blood count-bacteremia BASIC metabolic panel-acute kidney injury Hepatic function panel-transaminitis PIA DO,ANGELA 03/28/16 1349: Attending MD Review Statement Attending Statement Attending MD Statement: examined this patient, discuss w/resident/PA/RETAIL INVENTORY CONTROL CLERK, agreed w/resident/PA/RETAIL INVENTORY CONTROL CLERK, reviewed EMR data (avail), discussed with nursing, discussed with case mgmt, reviewed images, amended to note Attending Assessment/Plan: Patient seen and examined, offers no complaints. Last night he had developed a rash as well as diarrhea on Cipro. Cipro was discontinued at that point. Patient's creatinine remains high and now he is bacteremic with gram-positive cocci in Nails chains likely enterococcus. At this point we have consulted infectious disease. We'll start him on vancomycin. Will continue him on gentle IV hydration and monitor his creatinine. DVT px: Heparin subcutaneous.
[2016-03-28 09:38] LABS: ABSOLUTE BASOPHIL COUNT 0 /CUMM (0.0-0.2); ABSOLUTE EOSINOPHIL COUNT 0.1 /CUMM (0.0-0.7); ABSOLUTE GRANULOCYTE CT 8.5 /CUMM (1.4-6.5); ABSOLUTE LYMPH COUNT 0.7 /CUMM (1.2-3.4); ABSOLUTE MONOCYTE COUNT 1.1 /CUMM (0.10-0.60); BASOPHIL % 0.1 % (0.0-2.0); EOSINOPHIL % 1.1 % (0-5); GRANULOCYTE % 82.2 % (42.2-75.2); MEAN CORPUSCULAR HGB 29.7 PG (27.0-31.0); MEAN CORPUSCULAR HGB CONC 33.3 G/DL (33.0-37.0); MEAN CORPUSCULAR VOLUME 89.1 FL (80.0-94.0); MEAN PLATELET VOLUME 7.8 FL (7.4-10.4); PLATELET COUNT 218 /CUMM (130-400); RBC DISTRIBUTION WIDTH 14.6 % (11.5-14.5); RED BLOOD CELL CT 4.17 /CUMM (4.70-6.10); WHITE BLOOD CELL COUNT 10.3 /CUMM (4.8-10.8)
[2016-03-28 09:41] LABS: HEMATOCRIT 37.2 % (42-52)
[2016-03-28 15:49] VITALS: BP 118/62
--- NOTE | 2016-03-28 16:01 | Cons- Infect Disease ---
General Information and HPI Consulting Request Date of Consult: 03/28/16 Requested By: ANGELA PALACIO MD Reason for Consult: Sepsis of urologic origin Source of Information: patient, family, old records History of Present Illness: This is a 61-year-old man with a history of nephrolithiasis, status post placement of bilateral ureteral stents at [facility] 9 months prior to admission, at which time he apparently developed a pruritic rash after a cephalosporin, status post ureteroscopy and laser lithotripsy with stone removal , with replacement of the left ureteral stent and removal of the right one, with Gentamicin prophylaxis, admitted on March 27 with a one week history of left sided back pain, nausea and generalized malaise, without documented fevers or chills, with outpatient workup apparently revealing acute kidney injury and obstruction of the left kidney. On admission he was febrile to 101.8 with a blood pressure 86/58. Laboratory data revealed a white blood cell count of 12, 000, BUN/creatinine 45 and 2.6, bilirubin 1.4, alk phosphatase 220, AST/ALT 283 and 367. Urinalysis 1-3 RBC/3-5 WBCs. A right upper quadrant ultrasound revealed mild right renal pelviectasis without hydronephrosis, with a physiologically distended gallbladder with no stones, sludge, polyps, wall thickening or pericholecystic fluid. He was begun on Ciprofloxacin and taken to the OR for insertion of a left ureteral stent, with a 7 mm UPJ filling defect noted. Postop he was continued on Ciprofloxacin, which was discontinued because of the development of a pruritic rash. This morning blood cultures 2 were reported positive for gram-positive cocci in pairs and chains, and, after discussion with me, he was started on Vancomycin. He appears to have defervesced overnight. At present he feels poorly but has no specific complaints other than the mildly pruritic rash. Allergies/Medications Allergies: Coded Allergies: cefazolin (HIVES 08/21/15) red dye (HIVES 08/21/15) Home Med List: Aspirin (Ecotrin*) 81 MG TABLET.DR 1 TAB PO DAILY HEART HEALTH (Reported) Atorvastatin Calcium 40 MG TABLET 1 TAB PO DAILY CHOLESTEROL (Reported) Metoprolol Succ XL (Toprol XL) 25 MG TAB 2 TAB PO DAILY HEART (Reported) Ramipril 5 MG CAPSULE 1 CAP PO DAILY HEART (Reported) Past History Travel History Traveled to [place] past 21 day No Medical History Blood Transfusion Hx: No Neurological: NONE EENT: NONE Cardiovascular: CAD (status post stents), hypertension, hyperlipidemia, HEART DISEASE Respiratory: NONE Gastrointestinal: NONE Hepatic: NONE Renal: KIDNEY STONES Musculoskeletal: NONE Psychiatric: NONE Endocrine: NONE Blood Disorders: NONE Cancer(s): NONE SEED CORE OPERATOR/Reproductive: NONE History of MRSA: No History of VRE: No History of CDIFF: No Isolation History: Standard Influenza Vaccine: 11/21/15 Surgical History Surgical History: lithotripsy CARDIAC STENT Psychosocial History Where Do You Live? Home Services at Home: None Smoking Status: Former Smoker ETOH Use: occasional use Illicit Drug Use: denies illicit drug use Review of Systems Review of Systems All Other Systems: Reviewed and Negative Exam & Diagnostic Data Last 24 Hrs of Vital Signs/I&O Vital Signs Date Time Temp Pulse Resp B/P Pulse O2 O2 Flow FiO2 Ox Delivery Rate 03/28 1549 99.7 79 21 118/62 94 Room Air 03/28 0923 80 106/54 03/28 0747 98.4 88 20 95/51 92 Room Air 03/28 0334 100/44 03/28 0126 86 78/40 03/27 2355 99.0 86 24 86/49 91 Intake & Output 03/28 1600 03/28 0800 03/28 0000 Intake Total 2300 800 Output Total 900 600 Balance 1400 200 Intake, IV 1900 400 Intake, Oral 400 400 Number 2 Bowel Movements Output, Urine 900 600 Physical Exam Other Physical Findings: He is awake and alert in no acute distress. MAXIMUM TEMPERATURE 101.8. Skin reveals a diffuse maculopapular rash. HEENT exam is negative. Neck is supple with no adenopathy. Lungs are clear. Heart regular rhythm with no murmur. Abdomen is obese, soft, nontender with positive bowel sounds. Back no CVA tenderness. Extremities no cyanosis, clubbing or edema. Neuro is without focality. Last 24 Hours of Lab Results: Laboratory Tests 03/28 03/27 089 Chemistry Sodium (137 - 145 mmol/L) 134 L Potassium (3.5 - 5.1 mmol/L) 4.0 Chloride (98 - 107 mmol/L) 107 Carbon Dioxide (22 - 30 mmol/L) 19 L Anion Gap (5 - 16) 9 BUN (9 - 20 mg/dL) 53 H Creatinine (0.7 - 1.2 mg/dL) 2.4 H Estimated GFR (>60 ml/min) 28 L BUN/Creatinine Ratio (7 - 25 %) 22.1 Lactic Acid (0.7 - 2.1 mmol/L) 1.5 Total Bilirubin (0.2 - 1.3 mg/dL) 0.9 Direct Bilirubin (< 0.4 mg/dL) 0.8 H AST (17 - 59 U/L) 165 H ALT (21 - 72 U/L) 240 H Alkaline Phosphatase (< 127 U/L) 177 H Total Protein (6.3 - 8.2 g/dL) 4.6 L Albumin (3.5 - 5.0 g/dL) 2.5 L Hematology CBC w Diff NO MAN DIFF REQ WBC (4.8 - 10.8 /CUMM) 10.3 RBC (4.70 - 6.10 /CUMM) 4.17 L Hgb (14.0 - 18.0 G/DL) 12.4 L Hct (42 - 52 %) 37.2 L MCV (80.0 - 94.0 FL) 89.1 MCH (27.0 - 31.0 PG) 29.7 RDW (11.5 - 14.5 %) 14.6 H Plt Count (130 - 400 /CUMM) 218 MPV (7.4 - 10.4 FL) 7.8 Gran % (42.2 - 75.2 %) 82.2 H Lymphocytes % (20.5 - 51.1 %) 6.3 L Monocytes % (1.7 - 9.3 %) 10.3 H Eosinophils % (0 - 5 %) 1.1 Basophils % (0.0 - 2.0 %) 0.1 Absolute Granulocytes (1.4 - 6.5 /CUMM) 8.5 H Absolute Lymphocytes (1.2 - 3.4 /CUMM) 0.7 L Absolute Monocytes (0.10 - 0.60 /CUMM) 1.1 H Absolute Eosinophils (0.0 - 0.7 /CUMM) 0.1 Absolute Basophils (0.0 - 0.2 /CUMM) 0 PUBS MCHC (33.0 - 37.0 G/DL) 33.3 Last 24 Hours of Juan Results: Blood cultures March 27 positive for gram-positive cocci in pairs and chains Urine culture March 27 negative Stool C. difficile March 28 pending Diagnostic Data Recent Imaging Findings: Right upper quadrant ultrasound March 27 reveals mild right renal pelviectasis and a physiologically distended gallbladder with no evidence of stones, sludge, polyps, wall thickening or pericholecystic fluid. Assessment/Plan Assessment/Plan Impression: This is a 61-year-old man with a history of nephrolithiasis and bilateral hydronephrosis, status post bilateral ureteral stents, status post laser lithotripsy and stone removal from the left kidney 7 months prior to admission, admitted on March 27 with a one week history of left-sided back pain and nausea after he was found to have recurrent obstruction of the left kidney and acute renal failure, found on admission to be febrile with a mild leukocytosis and acute renal failure, status post placement of a left ureteral stent yesterday, with blood cultures 2 positive for gram positive cocci in pairs and chains. His clinical picture is consistent with sepsis of urologic origin secondary to the obstructed left kidney. The most likely organism is Enterococcus and, given his allergy to cephalosporins, which apparently was manifest as a pruritic rash, it may be prudent to avoid penicillins; therefore he should be treated with Vancomycin pending further information. The current rash may be secondary to the Ciprofloxacin and this may, too, need to be avoided in the future. His elevated liver enzymes are likely secondary to sepsis, with exam and ultrasound negative for evidence of cholecystitis. Suggestion: 1. Would obtain specific information from [facility] regarding his allergy to cephalosporins 2. Review all of his current medications and discontinue all unessential ones 3. Repeat blood cultures 2 in the AM 4. Echocardiogram IF blood cultures prove to be Enterococcus 5. Vancomycin random level in the a.m. 6. Would hold on further Vancomycin, with further doses based on results of a.m. chemistries and cultures Consult Acknowledgment - Thank you for your consult request.
[2016-03-28 23:56] VITALS: BP 118/68
--- NOTE | 2016-03-29 08:17 | PN- Housestaff ---
KELSI VALERIO MD 03/29/16 0816: Subjective Follow-up For: Obstructive uropathy Sepsis Acute kidney injury Transaminitis Subjective: Patient seen and examined. He is seen sitting upright in bed resting comfortably. He appears to be in no acute distress. He does admit to a rash on his lower abdomen/groin/thighs that is reportedly itchy and mildly painful. He admits to a history of an allergy to red dye for which he cannot take certain medications, such as enteric coated aspirin. He continues to denies any shortness of breath, or lip/mouth swelling. His pain is well controlled on the current regimen and he otherwise has no complaints. He reports resolution of his hiccups. Additionally he denies any headache, fever, chills, chest pain, nausea, vomiting , diarrhea. No overnight events reported. Review of Systems Constitutional: Reports: see HPI. Objective Last 24 Hrs of Vital Signs/I&O Vital Signs Date Time Temp Pulse Resp B/P Pulse O2 O2 Flow FiO2 Ox Delivery Rate 03/29 1635 98.6 95 18 126/70 95 Room Air 03/29 1000 94 104/60 03/29 0906 98.1 95 20 118/62 94 Room Air / 2356 98.7 80 20 118/68 95 Room Air Intake & Output 03/29 1600 03/29 0800 03/29 0000 Intake Total 7103 251 1030 Output Total 450 1200 875 Balance 720 -640 145 Intake, IV 450 300 Intake, Oral 720 560 720 Output, Urine 450 1200 875 Physical Exam General Appearance: Alert, Oriented X3, Cooperative, No Acute Distress Other Physical Findings: General -well-developed, well-nourished obese middle-aged male in no acute distress HEENT - NCAT, PERRL, EOMI, anicteric sclera Neck - Supple Cardio - S1, S2 w/o murmurs/gallops/rubs Resp - CTA bilaterally w/o wheezing/rhochi/crackles GI - soft, obese, nontender, nondistended, bowel sounds present, red uticarial puritis rash on his lower abdomen without any excoriation, induration, or drainage Neuro - Awake and alert, CN II - XII grossly intact Extremities - no edema, pulses intact Skin - Chronic skin changes in his upper/lower extremities Current Medications: Current Medications Sig/Jayden Start time Last Medication Dose Route Stop Time Status Admin Aspirin 81 MG DAILY 03/30 1000 AC PO Aspirin Buffered 81 MG DAILY 03/28 1000 DC 03/29 PO 1025 Atorvastatin Calcium 40 MG 1700 03/28 1700 AC 03/29 PO 1626 Calcium Carbonate 500 MG Q6P PRN 03/28 1200 AC 03/29 PO 1631 Diphenhydramine HCl 50 MG DAILY 03/30 1000 AC PO Diphenhydramine HCl 25 MG ONCE ONE 03/29 1615 DC 03/29 PO 03/29 1616 1626 Diphenhydramine HCl 25 MG DAILY 03/29 1000 DC 03/29 PO 1025 Heparin Sodium 5,000 UNIT Q8 03/27 1400 AC 03/29 (Porcine) SC 2133 Melatonin 5 MG AT BEDTIME 03/27 2200 AC 03/29 PO 2133 Metoclopramide HCl 5 MG Q8 03/28 0952 AC 03/29 PO 2133 Metoprolol Succinate 50 MG DAILY 03/28 1000 AC PO Morphine Sulfate 2 MG Q4P PRN 03/27 1245 AC IV Patient Medication 1 ED .STK-MED ONE 03/29 1426 MT Teaching ED 03/29 1427 Sodium Chloride 1,000 ML Q13H 03/28 1200 AC 03/29 IV 0422 Vancomycin HCl 2,000 MG Q24H / 1144 AC 03/29 Dextrose/Water 500 ML IV 1246 Last 24 Hrs of Lab/Juan Results Last 24 Hrs of Labs/Mics: Laboratory Tests 03/29/16 0840: Random Vancomycin Cancelled 03/29/16 0735: Anion Gap 8, Estimated GFR 51 L, BUN/Creatinine Ratio 27.1 H, Total Bilirubin 0.8, Direct Bilirubin 0.6 H, AST 235 H, ALT 311 H, Alkaline Phosphatase 154 H, Total Protein 5.0 L, Albumin 2.6 L, CBC w Diff NO MAN DIFF REQ, RBC 4.29 L , MCV 89.2, MCH 29.8, RDW 15.1 H, MPV 8.3, Gran % 79.1 H, Lymphocytes % 9.3 L , Monocytes % 7.9, Eosinophils % 3.5, Basophils % 0.2, Absolute Granulocytes 9.7 H, Absolute Lymphocytes 1.1 L, Absolute Monocytes 1.0 H, Absolute Eosinophils 0.4, Absolute Basophils 0, PUBS MCHC 33.4, Random Vancomycin 7.6 Microbiology 03/29 924 BLOOD: Blood Culture - RECD 03/29 914 BLOOD: Blood Culture - RECD Assessment/Plan Assessment: Patient continues to report urinary pain and frequency/urgency, and denies any further hematuria. Blood cultures now demonstrating enterococcus with sensitivites pending. Vancomycin will be continued at the current dose until sensitivities are reported. Random vancomycin level was subtherapeutic. He has a persistent rash despite discontinuing Ciprofloxacin and giving benadryl; further history obtained determined that he has a red dye allergy and a similar adverse reaction to enteric coated aspirin. Enteric coated aspirin was switched to the standard baby aspirin. Urology follow up recommendations pending. Echocardiogram pending. Records obtained the patients PCP demonstrated a baseline creatinine level of 1.28 as of 02/18/16. Problem list: -Obstructive uropathy, status post stent -Acute kidney injury -Sepsis, now resolved -Gram-positive cocci bacteremia, on vancomycin -Transaminitis Plan: -General medicine -Monitor vital signs for hemodynamic instability and fever -Monitor for signs of allergic reaction, continue to hold fluoroquinolones -Normal saline at 75 mL per hour -Continue vancomycin -Benadryl as needed for worsening rash -Follow-up culture and sensitivities -Avoid nephrotoxic medications such as NSAIDs for acute kidney injury -Continue home medications except beta senia and WALE inhibitor -DVT prophylaxis with subcutaneous heparin -Pain pathway -Healthy diet -Full code Problem List: 1. Obstructive uropathy Pain Ratin Pain Location: flank, groin Pain Goal: Pain 7 or less Pain Plan: As noted in plan Tomorrow's Labs & Rationales: CBC - bacteremia BEP - acute kidney injury PIA DO,[facility] 03/29/16 1325: Attending MD Review Statement Attending Statement Attending MD Statement: examined this patient, discuss w/resident/PA/EVENT EXECUTIVE, agreed w/resident/PA/EVENT EXECUTIVE, reviewed EMR data (avail), discussed with nursing, discussed with case mgmt, reviewed images, amended to note Attending Assessment/Plan: Patient seen and examined, feels overall better today. He is growing enterococcus in the urine. He was started on vancomycin as recommended by infectious disease. The rash has improved. Vital Signs Date Time Temp Pulse Resp B/P Pulse O2 O2 Flow FiO2 Ox Delivery Rate 03/29 1000 94 104/60 03/29 0906 98.1 95 20 118/62 94 Room Air 03/28 2356 98.7 80 20 118/68 95 Room Air 03/28 1549 99.7 79 21 118/62 94 Room Air on exam; aox3, nad. cv; s1,s2, rrr. resp; clear abd; soft, nt, bs+ ext; no edema. Laboratory Tests 03/29 03/29 0840 0735 Chemistry Sodium (137 - 145 mmol/L) 137 Potassium (3.5 - 5.1 mmol/L) 4.1 Chloride (98 - 107 mmol/L) 109 H Carbon Dioxide (22 - 30 mmol/L) 20 L Anion Gap (5 - 16) 8 BUN (9 - 20 mg/dL) 38 H Creatinine (0.7 - 1.2 mg/dL) 1.4 H Estimated GFR (>60 ml/min) 51 L BUN/Creatinine Ratio (7 - 25 %) 27.1 H Total Bilirubin (0.2 - 1.3 mg/dL) 0.8 Direct Bilirubin (< 0.4 mg/dL) 0.6 H AST (17 - 59 U/L) 235 H ALT (21 - 72 U/L) 311 H Alkaline Phosphatase (< 127 U/L) 154 H Total Protein (6.3 - 8.2 g/dL) 5.0 L Albumin (3.5 - 5.0 g/dL) 2.6 L Hematology CBC w Diff NO MAN DIFF REQ WBC (4.8 - 10.8 /CUMM) 12.3 H RBC (4.70 - 6.10 /CUMM) 4.29 L Hgb (14.0 - 18.0 G/DL) 12.8 L Hct (42 - 52 %) 38.2 L MCV (80.0 - 94.0 FL) 89.2 MCH (27.0 - 31.0 PG) 29.8 RDW (11.5 - 14.5 %) 15.1 H Plt Count (130 - 400 /CUMM) 281 MPV (7.4 - 10.4 FL) 8.3 Gran % (42.2 - 75.2 %) 79.1 H Lymphocytes % (20.5 - 51.1 %) 9.3 L Monocytes % (1.7 - 9.3 %) 7.9 Eosinophils % (0 - 5 %) 3.5 Basophils % (0.0 - 2.0 %) 0.2 Absolute Granulocytes (1.4 - 6.5 /CUMM) 9.7 H Absolute Lymphocytes (1.2 - 3.4 /CUMM) 1.1 L Absolute Monocytes (0.10 - 0.60 /CUMM) 1.0 H Absolute Eosinophils (0.0 - 0.7 /CUMM) 0.4 Absolute Basophils (0.0 - 0.2 /CUMM) 0 PUBS MCHC (33.0 - 37.0 G/DL) 33.4 Toxicology Random Vancomycin (ug/ml) Cancelled 7.6 A/P; 61 y/o M with pmh sig for nephrolithiasis status post lithotripsy and left renal stent placement [place] [address] Hernandez, hypertension, hyperlipidemia, coronary artery disease admitted with sepsis likely 2/2 to UTI, Acute renal failure 2/2 to obstructive uropathy, as well as transaminitis. Patient bacteremic with enterococcus. Likely source would be the urinary tract but will get an echocardiogram as recommended by infectious disease. Continue vancomycin. We'll try to get records from [facility] about his cephalosporin allergies. Creatinine has improved on IV hydration. Continue IV fluids for another 24 hours. DVT px; hep sq.
[2016-03-29 09:06] VITALS: BP 118/62
[2016-03-29 09:24] LABS: ABSOLUTE BASOPHIL COUNT 0 /CUMM (0.0-0.2); ABSOLUTE EOSINOPHIL COUNT 0.4 /CUMM (0.0-0.7); ABSOLUTE GRANULOCYTE CT 9.7 /CUMM (1.4-6.5); ABSOLUTE LYMPH COUNT 1.1 /CUMM (1.2-3.4); BASOPHIL % 0.2 % (0.0-2.0); EOSINOPHIL % 3.5 % (0-5); GRANULOCYTE % 79.1 % (42.2-75.2); HEMATOCRIT 38.2 % (42-52); MEAN CORPUSCULAR HGB 29.8 PG (27.0-31.0); MEAN CORPUSCULAR HGB CONC 33.4 G/DL (33.0-37.0); MEAN CORPUSCULAR VOLUME 89.2 FL (80.0-94.0); MEAN PLATELET VOLUME 8.3 FL (7.4-10.4); PLATELET COUNT 281 /CUMM (130-400); RBC DISTRIBUTION WIDTH 15.1 % (11.5-14.5); RED BLOOD CELL CT 4.29 /CUMM (4.70-6.10); WHITE BLOOD CELL COUNT 12.3 /CUMM (4.8-10.8)
--- NOTE | 2016-03-29 13:36 | PN- Infect Dx ---
Subjective Subjective: Afebrile. His pruritic rash persists. He has no other complaints. He denies dysuria and has had no diarrhea overnight. Objective Last 24 Hrs of Vital Signs/I&O Vital Signs Date Time Temp Pulse Resp B/P Pulse O2 O2 Flow FiO2 Ox Delivery Rate 03/29 1000 94 104/60 03/29 0906 98.1 95 20 118/62 94 Room Air 03/28 2356 98.7 80 20 118/68 95 Room Air 03/28 1549 99.7 79 21 118/62 94 Room Air Intake & Output 03/29 1600 03/29 0800 03/29 0000 Intake Total 560 1020 Output Total 1200 875 Balance -640 145 Intake, IV 300 Intake, Oral 560 720 Output, Urine 1200 875 Physical Exam Other Physical Findings: He appears comfortable in no acute distress Skin macular papular rash persists on the trunk and extremities Lungs are clear Heart regular rhythm with no murmur Abdomen is soft, nontender with positive bowel sounds Back no CVA tenderness Results Last 24 Hours of Lab Results: Laboratory Tests 03/29 03/29 0840 0735 Chemistry Sodium (137 - 145 mmol/L) 137 Potassium (3.5 - 5.1 mmol/L) 4.1 Chloride (98 - 107 mmol/L) 109 H Carbon Dioxide (22 - 30 mmol/L) 20 L Anion Gap (5 - 16) 8 BUN (9 - 20 mg/dL) 38 H Creatinine (0.7 - 1.2 mg/dL) 1.4 H Estimated GFR (>60 ml/min) 51 L BUN/Creatinine Ratio (7 - 25 %) 27.1 H Total Bilirubin (0.2 - 1.3 mg/dL) 0.8 Direct Bilirubin (< 0.4 mg/dL) 0.6 H AST (17 - 59 U/L) 235 H ALT (21 - 72 U/L) 311 H Alkaline Phosphatase (< 127 U/L) 154 H Total Protein (6.3 - 8.2 g/dL) 5.0 L Albumin (3.5 - 5.0 g/dL) 2.6 L Hematology CBC w Diff NO MAN DIFF REQ WBC (4.8 - 10.8 /CUMM) 12.3 H RBC (4.70 - 6.10 /CUMM) 4.29 L Hgb (14.0 - 18.0 G/DL) 12.8 L Hct (42 - 52 %) 38.2 L MCV (80.0 - 94.0 FL) 89.2 MCH (27.0 - 31.0 PG) 29.8 RDW (11.5 - 14.5 %) 15.1 H Plt Count (130 - 400 /CUMM) 281 MPV (7.4 - 10.4 FL) 8.3 Gran % (42.2 - 75.2 %) 79.1 H Lymphocytes % (20.5 - 51.1 %) 9.3 L Monocytes % (1.7 - 9.3 %) 7.9 Eosinophils % (0 - 5 %) 3.5 Basophils % (0.0 - 2.0 %) 0.2 Absolute Granulocytes (1.4 - 6.5 /CUMM) 9.7 H Absolute Lymphocytes (1.2 - 3.4 /CUMM) 1.1 L Absolute Monocytes (0.10 - 0.60 /CUMM) 1.0 H Absolute Eosinophils (0.0 - 0.7 /CUMM) 0.4 Absolute Basophils (0.0 - 0.2 /CUMM) 0 PUBS MCHC (33.0 - 37.0 G/DL) 33.4 Toxicology Random Vancomycin (ug/ml) Cancelled 7.6 Last 24 Hours of Juan Results: Blood cultures 2 March 27 positive for Enterococcus and, possibly, a second gram-positive organism Stool C. difficile March 28 negative Urine culture March 27 negative Assessment/Plan Impression: Enterococcal sepsis of urologic origin status post cystoscopy and insertion of a left ureteral stent 2 days ago for a recurrent left hydronephrosis secondary to an obstructing stone, with temperatures now normal but with white blood cell count slightly elevated. There is a slight increase in the eosinophils on his differential, which is likely secondary to his rash, which is presumably secondary to Ciprofloxacin. He is currently on Vancomycin which may need to be continued even if the Enterococcus is sensitive to Ampicillin given his history of a pruritic rash on Cefazolin on his recent hospitalization at [facility]. Suggestion: 1. Would obtain further information from [facility] regarding his pruritic rash and from his primary care physician regarding his antibiotic allergies 2. Review all of his current medications and discontinue all unessential ones 3. Echocardiogram 4. Await Urology follow-up 5. Continue Vancomycin 2 g IV every 24 hours pending final cultures
[2016-03-29 16:35] VITALS: BP 126/70
--- NOTE | 2016-03-29 17:48 | PN- Urology ---
Subjective Subjective: pt doing better since left stent placed. is eager to have surgeyr for it. Review of Systems Constitutional: Reports: no symptoms. EENTM: Reports: no symptoms. Cardiovascular: Reports: no symptoms. Respiratory: Reports: no symptoms. Gastrointestinal: Reports: no symptoms. Genitourinary: Reports: frequency, urgency. Musculoskeletal: Reports: back pain. Skin: Reports: no symptoms. Neurological/Psychological: Reports: no symptoms. Hematologic/Endocrine: Reports: no symptoms. Immunologic/Allergic: Reports: no symptoms. Objective Vital Signs and I&Os Vital Signs Date Time Temp Pulse Resp B/P Pulse O2 O2 Flow FiO2 Ox Delivery Rate 03/29 1635 98.6 95 18 126/70 95 Room Air 03/29 1000 94 104/60 03/29 0906 98.1 95 20 118/62 94 Room Air 03/28 2356 98.7 80 20 118/68 95 Room Air Intake & Output 03/29 1600 03/29 0800 02/ 0000 / 1600 03/28 0800 03/28 0000 Intake Total 5982 109 8185 1170 2300 800 Output Total 450 1200 875 650 900 600 Balance 720 -640 569 900 7790 200 Intake, IV 450 584 228 9322 400 Intake, Oral 720 560 720 720 400 400 Number 2 Bowel Movements Output, Urine 450 1200 875 650 900 600 Physical Exam General Appearance: well developed/nourished, no apparent distress, alert, awake , comfortable Head: atraumatic, normal appearance Ears, Nose, Throat: normal ENT inspection Respiratory: no respiratory distress Abdomen: soft, non-tender Neurologic/Psychiatric: awake, alert, oriented x 3 Skin: intact, normal color, warm/dry Assessment/Plan Assessment/Plan pt with left renal stone 12mm in size at [facility] with urospesis s/p stent placement over the weekend. feeling much better. Keep him NPO/IVF for ESWL in the morning. Discussed the r/b/a of the surgeyr. Problem List: 1. Obstructive uropathy 2. Hydronephrosis 3. Ureteral stone with hydronephrosis 4. JULIANA (acute kidney injury) Core Measures/Miscellaneous Venous Thromboembolism VTE Risk Factors: Acute medical illness VTE Contraindications: No Contraindications VTE Prophylaxis Ordered Inpt: Pharm- Heparin VTE Diagnosis: No VTE Type: NONE VTE Confirmed by (Test): NONE Beta Shara Is Beta Shara a Home Med? No Antibiotics Is Patient on Antibiotics? Yes
[2016-03-30 00:01] VITALS: BP 132/78
--- NOTE | 2016-03-30 07:18 | PN- Housestaff ---
KELSI VALERIO MD 03/30/16 0718: Subjective Follow-up For: Obstructive uropathy Sepsis Acute kidney injury Transaminitis Subjective: Patient seen and examined. He is seen lying upright on a strecher about to be taken down for his procedure this morning. He appears to be in no acute distress. He reports that he had a headache yesterday evening for which he was given IV tylenol, as he cannot have the pill due to the red dye. He admits that his urination is still somewhat painful with frequeny/urgency but is no longer bloody. He rash on his belly appears better to him this morning but the rash on his groin and legs is still itchy and bothersome. Otherwise he slept well and has no complaints. Additionally he denies any fever, chills, chest pain, shortness of breath, nausea, vomiting, diarrhea. No overnight events reported. Review of Systems Constitutional: Reports: see HPI. Objective Last 24 Hrs of Vital Signs/I&O Vital Signs Date Time Temp Pulse Resp B/P Pulse O2 O2 Flow FiO2 Ox Delivery Rate 03/30 0001 98.5 89 20 132/78 94 Room Air 03/29 1635 98.6 95 18 126/70 95 Room Air 03/29 1000 94 104/60 03/29 0906 98.1 95 20 118/62 94 Room Air Intake & Output 03/30 0800 03/30 0000 03/29 1600 Intake Total 080 626 3908 Output Total 1250 950 450 Balance -650 -725 720 Intake, IV 600 225 450 Intake, Oral 0 720 Output, Urine 1250 950 450 Physical Exam General Appearance: Alert, Oriented X3, Cooperative, No Acute Distress Other Physical Findings: General -well-developed, well-nourished obese middle-aged male in no acute distress HEENT - NCAT, PERRL, EOMI, anicteric sclera Neck - Supple Cardio - S1, S2 w/o murmurs/gallops/rubs Resp - CTA bilaterally w/o wheezing/rhochi/crackles GI - soft, obese, nontender, nondistended, bowel sounds present, red uticarial puritic rash on his lower abdomen/groin/thighs without any excoriation, induration, or drainage Neuro - Awake and alert, CN II - XII grossly intact Extremities - no edema, pulses intact Skin - Chronic skin changes in his upper/lower extremities Current Medications: Current Medications Sig/Jayden Start time Last Medication Dose Route Stop Time Status Admin Acetaminophen 650 MG Q4P PRN 03/30 0600 DC PO Acetaminophen 1,000 MG ONCE PRN 03/30 0600 AC 03/30 IV 03/30 1200 0606 Aspirin 81 MG DAILY 03/30 1000 AC PO Aspirin Buffered 81 MG DAILY 03/28 1000 DC 03/29 PO 1025 Atorvastatin Calcium 40 MG 1700 03/28 1700 AC 03/29 PO 1626 Calcium Carbonate 500 MG .STK-MED ONE 03/29 1628 DC PO 03/29 1629 Calcium Carbonate 500 MG Q6P PRN 03/28 1200 AC 03/29 PO 1631 Diphenhydramine HCl 50 MG DAILY 03/30 1000 AC PO Diphenhydramine HCl 25 MG ONCE ONE 03/29 2200 DC 03/29 IV 03/29 2201 2324 Diphenhydramine HCl 25 MG ONCE ONE 03/29 1615 DC 03/29 PO 03/29 1616 1626 Diphenhydramine HCl 25 MG DAILY 03/29 1000 DC 03/29 PO 1025 Heparin Sodium 5,000 UNIT Q8 03/27 1400 AC 03/30 (Porcine) SC 0547 Melatonin 5 MG AT BEDTIME 03/27 2200 AC 03/29 PO 2133 Metoclopramide HCl 5 MG Q8 03/28 0952 DC 03/30 PO 0547 Metoprolol Succinate 50 MG DAILY 03/28 1000 AC PO Morphine Sulfate 2 MG Q4P PRN 03/27 1245 AC IV Patient Medication 1 ED .STK-MED ONE 03/29 1426 NV Teaching ED 03/29 1427 Sodium Chloride 1,000 ML Q13H 03/28 1200 AC 03/30 IV 0547 Vancomycin HCl 2,000 MG Q24H / 1144 AC 03/29 Dextrose/Water 500 ML IV 1246 Last 24 Hrs of Lab/Juan Results Last 24 Hrs of Labs/Mics: Laboratory Tests 03/30/16 0628: Sodium Pending, Potassium Pending, Chloride Pending, Carbon Dioxide Pending, Anion Gap Pending, BUN Pending, Creatinine Pending, BUN/Creatinine Ratio Pending , CBC w Diff Pending, WBC Pending, RBC Pending, Hgb Pending, Hct Pending, MCV Pending, MCH Pending, RDW Pending, Plt Count Pending, MPV Pending, PUBS MCHC Pending 03/29/16 0840: Random Vancomycin Cancelled Microbiology 03/29 0925 BLOOD: Blood Culture - RECD 03/29 914 BLOOD: Blood Culture - RECD Assessment/Plan Assessment: Patient was evaluation by Dr. Hernandez last evening whom decided the patient would benefit from an ESWL procedure in attempt to break up the obstructive caculi. He was made NPO in anticipation of this and continued on IV fluids. Enterococcus sensitivites are still pending, patient is continued on Vancomycing. His rash is still present but appears improved and is subjectively improving. Echocardiogram and [facility] Records still pending. Obstructive Uropathy: History of renal calculi with stenting and ESWL most recently July 2015. -Monitor I&Os -Pain control -ESWL today -Ureter stent in place -Urology Consult Acute Kidney Injury: Baseline creatinine 1.28 as of 02/18/16 according to PCP records. Elevated to 2.4 on admission. Most likely secondary to acute obstruction -Avoid nephrotoxic medications such as NSAIDs for acute kidney injury -Normal Saline @ 75mL/hr -Hold ACEi until kidney function at baseline -Daily BEP Enterococcal Bacteremia: Most likely secondary to ureter obstruction and surgical manipulation. Blood cultures positive times two. -Vancomycin 2g IV Daily -Monitor for signs of hemodynamic instability or fever -ID Consult -Follow up culture & sensitivities -Follow up echocardiogram New onset erythematous/pruritic rash: Patient has documented history of an allergy to cefazol, wool, and red dye. Patient developed rash after starting on Ciprofloxacin, which was subsequently discontinued. The enteric coated aspirin he was receiving in the hospital also reported contains red dye, which was converted to a non coated formula. PCP records do not demonstrate any other previously given Cephalosporin. -Benadryl 50mg PO Daily -Follow up records from [facility] Hyperlipidemia - atorvastatin 40mg POI Daily CAD - Aspirin 81mg PO Daily Pain Plan: -Acetaminophen 1g IV PRN -Morphine 2g IV Q4H PRN Pain 7-10 Diet - Healthy diet DVT prophylaxis - subcutaneous heparin Code Status - Full code Problem List: 1. Obstructive uropathy Pain Ratin Pain Location: flank groin Pain Goal: Pain 7 or less Pain Plan: As noted in plan Tomorrow's Labs & Rationales: CBC - bacteremia BEP - acute kidney injury LFTs - monitor of transaminitis RICHARD DO,GISELLE 03/30/16 1439: Attending MD Review Statement Attending Statement Attending MD Statement: examined this patient, discuss w/resident/PA/ROTARY DUMP OPERATOR, agreed w/resident/PA/ROTARY DUMP OPERATOR, reviewed EMR data (avail) Attending Assessment/Plan: Patient seen and examined. Plan of care discussed with the medical team and the patient. Available lab work and radiology test reports were reviewed. Patient underwent a lithotripsy procedure today. His currently feeling well and denies any pain fever chills. His vital signs have been stable. Abdomen soft nontender and chest exam is clear. The BBC count is 10.5 and hematocrit 35.7. Chemistry labs show decreasing BUN to 27. His chloride has increased to 109. Urine culture shows growth of enterococcus. Sensitivities are currently pending. Assessment and plan * Urosepsis due to enterococcus * Nephrolithiasis status post lithotripsy * Acute renal failure improving and now creatinine is 1.2 * Hyperlipidemia Plan * If patient is able to take adequate by mouth fluid please discontinue saline * Recheck LFTs tomorrow * Recheck chloride and BUN tomorrow * Continue vancomycin * Await sensitivities of enterococcus
[2016-03-30 08:04] LABS: ABSOLUTE BASOPHIL COUNT 0 /CUMM (0.0-0.2); ABSOLUTE EOSINOPHIL COUNT 0.6 /CUMM (0.0-0.7); ABSOLUTE GRANULOCYTE CT 7.7 /CUMM (1.4-6.5); ABSOLUTE LYMPH COUNT 1.5 /CUMM (1.2-3.4); ABSOLUTE MONOCYTE COUNT 0.7 /CUMM (0.10-0.60); BASOPHIL % 0.2 % (0.0-2.0); EOSINOPHIL % 5.3 % (0-5); GRANULOCYTE % 73.5 % (42.2-75.2); HEMATOCRIT 35.7 % (42-52); MEAN CORPUSCULAR HGB 29.8 PG (27.0-31.0); MEAN CORPUSCULAR HGB CONC 33.6 G/DL (33.0-37.0); MEAN CORPUSCULAR VOLUME 88.8 FL (80.0-94.0); MEAN PLATELET VOLUME 7.6 FL (7.4-10.4); PLATELET COUNT 321 /CUMM (130-400); RBC DISTRIBUTION WIDTH 14.7 % (11.5-14.5); RED BLOOD CELL CT 4.02 /CUMM (4.70-6.10); WHITE BLOOD CELL COUNT 10.5 /CUMM (4.8-10.8)
[2016-03-30 08:09] VITALS: BP 120/68
--- NOTE | 2016-03-30 08:59 | NUR ---
NURSING NOTE: PATIENT TRANSPORTED TO OR BY [facility] @ 0739 FOR ESWL. A&O X 3 WITH NO C/O PAIN OR DISCOMFORT. SPO2 95% ON RA. IV #24 LF INTACT AND WORKING. NS @ 75ML/HR STOPPED @ 0739.
--- NOTE | 2016-03-30 09:35 | Operative Report ---
Operative/Inv Procedure Report Surgery Date: 03/30/16 Name of Procedure: left extracorporeal shockwave lithotripsy Pre-Operative Diagnosis: left renal UPJ stone Post-Operative Diagnosis: same Estimated Blood Loss: scant Surgeon/Hydrologic Engineer: Lilibeth Hernandez Anesthesia: local monitored anesthesi Complications: none Condition: stable Operative Indication: large left renal stone causing obstruction prior to stent placement Operative/Procedure Note Note: 61yo male with a hx of kidney stones s/p URS laser and stent in 08/06 who was stone free. He subsequently developed another stone in the interim and it caused obstruction, hydronephrosis and sepsis. He had an emergency left stent placed over the weekend by Dr. Dueñas. He was consented to an ESWL. He and his wanted to stone treated during his hospital stay. A laser is not available for URS on such short notice and given the location and size of the stone, ESWL is a good option. He is on ASA however and he was cautioned that his risk of bleeding following the surgery including a hematoma formation is greater. He understood and wished to proceed. All questions were answered. He was placed on the operating room table in the supine position. The stone was localized in the renal pelvis and it was faint circular stone. This was shocked with 2500 shocks at a slow rate increasing it as the procedure progressed. Power ranged from 1-20 and total shocks were 2500. The stone was seen to fragment nicely and change in character from the preop character. Patient tolerated the procedure well. Findings: 12mm stone in the left renal pelvis, faint Discharge Disposition: PACU
--- NOTE | 2016-03-30 15:34 | Patient Discharge Instructions ---
Discharge Instructions General Discharge Information Special Instructions: Take amoxicillin as directed to complete a 14 day total course of antibiotics. Monitor for signs of allergic reaction such as shortness of breath, swelling of your lips or tongue, or diffuse worsening rash.. Continue to take Benadryl 25 mg by mouth daily while on antibiotics. Follow-up with your primary care provider after discharge in regards to your recent hospitalization and elevated liver function tests. Follow-up with your part maker after discharge in regards to your recent echocardiogram. Acute Coronary Syndrome Inclusion Criteria At DC or during hospital stay patient has or had the following: ACS DIAGNOSIS No Discharge Core Measures Meds if any: Prescribed or Continued at Discharge Meds if any: NOT Prescribed or Continued at Discharge Congestive Heart Failure Inclusion Criteria At DC or during hospital stay patient has or had the following: CHF DIAGNOSIS No Discharge Core Measures Meds if any: Prescribed or Continued at Discharge Meds if any: NOT Prescribed or Continued at Discharge Cerebrovascular accident Inclusion Criteria At DC or during hospital stay patient has or had the following: CVA/TIA Diagnosis No Discharge Core Measures Meds if any: Prescribed or Continued at Discharge Meds if any: NOT Prescribed or Continued at Discharge Venous thromboembolism Inclusion Criteria VTE Diagnosis No VTE Type NONE VTE Confirmed by (Test) NONE Discharge Core Measures - Per Current guidelines, there needs to be overlap - treatment for the first 5 days of Warfarin therapy. - If discharged on Warfarin prior to 5 days of - overlap therapy, the patient will need to be - assessed for post discharge needs including - *Post discharge parental anticoagulation - *Warfarin and/or parental anticoagulation education - *Follow up date to check INR post discharge At least 5 days overlap therapy as Inpatient No Meds if any: Prescribed or Continued at Discharge Note: Overlap Therapy is Warfarin and Anticoagulant Meds if any: NOT Prescribed or Continued at Discharge
--- NOTE | 2016-03-30 16:08 | PN- Infect Dx ---
Subjective Subjective: Afebrile without complaints. His rash persists, mildly pruritic. He notes mild dysuria which he attributes to the stent. Objective Last 24 Hrs of Vital Signs/I&O Vital Signs Date Time Temp Pulse Resp B/P Pulse O2 O2 Flow FiO2 Ox Delivery Rate 03/30 1035 80 120/68 03/30 0809 98.2 80 20 120/68 95 Room Air 03/30 0001 98.5 89 20 132/78 94 Room Air 03/29 1635 98.6 95 18 126/70 95 Room Air Intake & Output 03/30 1600 03/30 0800 03/30 0000 Intake Total 1270 600 225 Output Total 300 1250 950 Balance 970 -650 -725 Intake, IV 750 600 225 Intake, Oral 520 0 Number 0 Bowel Movements Output, Urine 300 1250 950 Physical Exam Other Physical Findings: He appears comfortable in no acute distress Lungs are clear Heart regular rhythm with no murmur Back no CVA tenderness Results Last 24 Hours of Lab Results: Laboratory Tests 03/30 627 Chemistry Sodium (137 - 145 mmol/L) 139 Potassium (3.5 - 5.1 mmol/L) 4.1 Chloride (98 - 107 mmol/L) 109 H Carbon Dioxide (22 - 30 mmol/L) 23 Anion Gap (5 - 16) 7 BUN (9 - 20 mg/dL) 27 H Creatinine (0.7 - 1.2 mg/dL) 1.2 Estimated GFR (>60 ml/min) > 60 BUN/Creatinine Ratio (7 - 25 %) 22.5 Hematology CBC w Diff NO MAN DIFF REQ WBC (4.8 - 10.8 /CUMM) 10.5 RBC (4.70 - 6.10 /CUMM) 4.02 L Hgb (14.0 - 18.0 G/DL) 12.0 L Hct (42 - 52 %) 35.7 L MCV (80.0 - 94.0 FL) 88.8 MCH (27.0 - 31.0 PG) 29.8 RDW (11.5 - 14.5 %) 14.7 H Plt Count (130 - 400 /CUMM) 321 MPV (7.4 - 10.4 FL) 7.6 Gran % (42.2 - 75.2 %) 73.5 Lymphocytes % (20.5 - 51.1 %) 14.0 L Monocytes % (1.7 - 9.3 %) 7.0 Eosinophils % (0 - 5 %) 5.3 H Basophils % (0.0 - 2.0 %) 0.2 Absolute Granulocytes (1.4 - 6.5 /CUMM) 7.7 H Absolute Lymphocytes (1.2 - 3.4 /CUMM) 1.5 Absolute Monocytes (0.10 - 0.60 /CUMM) 0.7 H Absolute Eosinophils (0.0 - 0.7 /CUMM) 0.6 Absolute Basophils (0.0 - 0.2 /CUMM) 0 PUBS MCHC (33.0 - 37.0 G/DL) 33.6 Last 24 Hours of Juan Results: Blood cultures March 27 positive for Enterococcus sensitive to Ampicillin and possibly a second gram-positive organism Blood cultures March 29 negative Assessment/Plan Impression: Doing well, with temperatures and white blood cell count now normal, on Vancomycin now Day 2 of treatment for Enterococcal sepsis of urologic origin status post cystoscopy and insertion of a left ureteral stent 3 days ago for a recurrent left hydronephrosis secondary to an obstructing stone and status post left ESWL earlier today. His eosinophil percentage on his differential continues to increase, presumably secondary to the Ciprofloxacin, which was felt to be the cause of his rash. Of note his records from his hospitalization in [facility] in July 2015 were reviewed, and it appears he received Ciprofloxacin and not a cephalosporin. There was no mention of any rash, though this was again discussed with the patient who does report a rash during that hospitalization. It appears that the rash may have been secondary to the Ciprofloxacin, which would explain the rash on this admission after reexposure to this antibiotic. It would appear, therefore, that he does not have any cephalosporin allergy; therefore, depending on his final blood cultures, he may be able to be treated with a penicillin, such as Ampicillin or Amoxicillin. Suggestion: 1. Follow-up final blood cultures 2. Follow-up Echocardiogram 3. Continue Vancomycin, but as noted above, should be able to adjust antibiotics once the blood cultures are finalized
[2016-03-30 16:13] VITALS: BP 102/60
--- NOTE | 2016-03-30 18:16 | ECHOCARDIOGRAM REPORT ---
CECILE WINKLER Age: 61 : 1955 Gender: M Exam Date: 03/30/2016 16:28 Exam Location: [address] [place] [address] Ht (in): 68 Wt (lb): 270 BSA: 2.48 BP: 120 / 68 Ordering Physician: KELSI VALERIO MD Referring Physician: KELSI VALERIO MD Technologist: Medina Pedersen [facility] Room Number: [id number] Indications: HYPERTENSION Rhythm: Sinus Technical Quality: Good FINDINGS Left Ventricle The left ventricle is upper normal limits in diameter. There is moderate concentric left ventricular hypertrophy. The interventricular septum appears to contract well. The inferior wall except for the very proximal part is akinetic. The lateral and posterior liriano are hypokinetic. Overall ventricular systolic function is mild to moderately decreased. Estimated `ejection fraction is 35-40%. Normal left ventricular diastolic filling pattern for age. Right Ventricle The right ventricle is normal in size and function. Right Atrium The right atrium is normal in size. Left Atrium The left atrium is normal in size. The interatrial septum is intact. Mitral Valve Mild thickening/calcification of the mitral valve leaflets. Mild mitral regurgitation. Aortic Valve Structurally normal aortic valve without significant sclerosis or stenosis. There is no aortic regurgitation. Tricuspid Valve The tricuspid valve is normal in structure and function. There is trace tricuspid regurgitation. Unable to estimate the right ventricular systolic pressure. Pulmonic Valve Structurally normal pulmonic valve. There is trace pulmonic regurgitation. Pericardium Normal pericardium without effusion. No pleural effusion. Great Vessels Normal aortic root dimension. The aortic arch and great vessels are well seen and are normal. CONCLUSIONS The left ventricle is upper normal limits in diameter. There is moderate concentric left ventricular hypertrophy. The interventricular septum appears to contract well. The inferior wall except for the very proximal part is akinetic. The lateral and posterior liriano are hypokinetic. Overall ventricular systolic function is mild to moderately decreased. Estimated `ejection fraction is 35-40%. The left atrium is normal in size. Mild thickening/calcification of the mitral valve leaflets. Mild mitral regurgitation. Structurally normal aortic valve without significant sclerosis or stenosis. Unable to estimate the right ventricular systolic pressure. No obvious valvular vegetations are seen on this study. GEO may be useful if clinically indicated. No previous studies were available for comparison. Aguilar Brush M.D. (Electronically Signed) Final Date: 30 March 2016 18:15 MEASUREMENTS (Male / Female) Normal Values 2D ECHO LV Diastolic Diameter PLAX 5.8 cm 4.2 - 5.9 / 3.9 - 5.3 cm LV Systolic Diameter PLAX 4.7 cm 2.1 - 4.0 cm LV Fractional Shortening PLAX 19.0 % 25 - 46 % LV Ejection Fraction 2D Teich 38.5 % IVS Diastolic Thickness 1.5 cm LVPW Diastolic Thickness 1.5 cm LV Relative Wall Thickness 0.5 RV Internal Dim ED PLAX 2.5 cm 1.9 - 3.8 cm LVOT Diameter 2.3 cm Aortic Root Diameter 3.1 cm LA Systolic Diameter LX 4.2 cm 3.0 - 4.0 / 2.7 - 3.8 cm LA Volume 25.0 cm 18 - 58 / 22 - 52 cm Ascending Aorta Diameter 3.2 cm DOPPLER AV Peak Velocity 116.0 cm/s AV Peak Gradient 5.4 mmHg AV Mean Velocity 72.5 cm/s AV Mean Gradient 3.0 mmHg AV Velocity Time Integral 18.3 cm LVOT Peak Velocity 107.0 cm/s LVOT Peak Gradient 4.6 mmHg LVOT Mean Velocity 67.0 cm/s LVOT Mean Gradient 2.0 mmHg LVOT Velocity Time Integral 19.0 cm LVOT Stroke Volume 78.9 cm AV Area Cont Eq vti 4.3 cm AV Area Cont Eq pk 3.8 cm MV Peak Velocity 76.5 cm/s MV Peak Gradient 2.3 mmHg MV Mean Velocity 46.0 cm/s MV Mean Gradient 1.0 mmHg Mitral E Point Velocity 56.7 cm/s Mitral A Point Velocity 55.9 cm/s Mitral E to A Ratio 1.0 MV PHT Velocity 67.2 cm/s MV Deceleration Carlton 201.0 cm/s MV Pressure Half Time 100.3 ms MV Area PHT 2.2 cm MV Deceleration Time 269.0 ms PV Peak Velocity 131.0 cm/s PV Peak Gradient 6.9 mmHg PV Mean Velocity 83.9 cm/s PV Mean Gradient 3.0 mmHg PV Velocity Time Integral 22.1 cm LV E' Lateral Velocity 8.0 cm/s Mitral E to LV E' Lateral Ratio 7.1 LV E' Septal Velocity 5.6 cm/s Mitral E to LV E' Septal Ratio 10.2
[2016-03-31 00:45] VITALS: BP 140/70
--- NOTE | 2016-03-31 07:11 | PN- Housestaff ---
KELSI VALERIO MD 03/31/16 0710: Subjective Follow-up For: Obstructive uropathy Sepsis Acute kidney injury Transaminitis Subjective: Patient seen and examined. He is seen sitting upright in bed resting comfortably. He appears to be in no acute distress. He reports resolution of his urinary frequency/urgency/hematuria. He does admit that the rash on his lower abdomen has disappeared and is no longer itchy, but is still present on his groin/thighs and is persistently itchy. Overnight he reports having a "headache" for which she was given intravenous acetaminophen that did not offer him relief, but was eventually given tramadol that seemed to solve his symptoms. He states that he feels well and is requesting to go home today. Additionally he denies any further headache, fever, chills, chest pain, palpitations, shortness of breath, cough, nausea, vomiting, diarrhea. No overnight events reported other than above. Review of Systems Constitutional: Reports: see HPI. Objective Last 24 Hrs of Vital Signs/I&O Vital Signs Date Time Temp Pulse Resp B/P Pulse O2 O2 Flow FiO2 Ox Delivery Rate 03/31 1118 74 124/60 03/31 0803 98.2 70 20 124/60 94 Room Air 03/31 0045 98.0 74 20 140/70 94 Room Air 03/30 1613 97.8 78 19 102/60 94 Intake & Output 03/31 1600 03/31 0800 03/31 0000 Intake Total 340 Output Total 925 900 Balance -925 -560 Intake, IV 100 Intake, Oral 240 Output, Urine 925 900 Physical Exam General Appearance: Alert, Oriented X3, Cooperative, No Acute Distress Other Physical Findings: General -well-developed, well-nourished obese middle-aged male in no acute distress HEENT - NCAT, PERRL, EOMI, anicteric sclera Neck - Supple Cardio - S1, S2 w/o murmurs/gallops/rubs Resp - CTA bilaterally w/o wheezing/rhochi/crackles GI - soft, obese, nontender, nondistended, bowel sounds present, red uticarial puritic rash on his groin/thighs without any excoriation, induration, or drainage Neuro - Awake and alert, CN II - XII grossly intact Extremities - no edema, pulses intact Skin - Chronic skin changes in his upper/lower extremities Current Medications: Current Medications Sig/Jayden Start time Last Medication Dose Route Stop Time Status Admin Acetaminophen 1,000 MG ONCE ONE 03/30 2029 DC 03/30 N/A 1 UNIT IV 03/30 2044 2043 Acetaminophen 1,000 MG ONCE PRN 03/30 0600 DC 03/30 IV 03/30 1200 0606 Aspirin 81 MG DAILY 03/30 1000 AC 03/31 PO 1117 Atorvastatin Calcium 40 MG 1700 03/28 1700 AC 03/30 PO 1625 Calcium Carbonate 500 MG Q6P PRN 03/28 1200 AC 03/29 PO 1631 Diphenhydramine HCl 50 MG DAILY 03/30 1000 AC 03/31 PO 0224 Heparin Sodium 5,000 UNIT Q8 03/27 1400 AC 03/31 (Porcine) SC 0644 Melatonin 5 MG AT BEDTIME 03/27 2200 AC 03/30 PO 2159 Metoprolol Succinate 50 MG DAILY 03/28 1000 AC 03/31 PO 1118 Morphine Sulfate 2 MG Q4P PRN 03/27 1245 AC 03/30 IV 2155 Sodium Chloride 1,000 ML Q13H 03/28 1200 DC 03/30 IV 0547 Tramadol HCl 50 MG Q6P PRN 03/31 0830 AC PO Tramadol HCl 50 MG ONCE PRN 03/31 0215 DC 03/31 PO 0224 Vancomycin HCl 2,000 MG Q24H 03/28 1144 AC 03/30 Dextrose/Water 500 ML IV 1036 Last 24 Hrs of Lab/Juan Results Last 24 Hrs of Labs/Mics: Laboratory Tests 03/31/16 0630: Anion Gap 7, Estimated GFR > 60, BUN/Creatinine Ratio 17.3, Total Bilirubin 0.8, Direct Bilirubin 0.5 H, AST 176 H, ALT 318 H, Alkaline Phosphatase 152 H, Total Protein 4.9 L, Albumin 2.7 L, CBC w Diff NO MAN DIFF REQ, RBC 4.03 L, MCV 89.7, MCH 29.5, RDW 14.7 H, MPV 7.6, Gran % 72.6, Lymphocytes % 16.6 L, Monocytes % 5.5, Eosinophils % 5.0, Basophils % 0.3, Absolute Granulocytes 7.7 H, Absolute Lymphocytes 1.8, Absolute Monocytes 0.6, Absolute Eosinophils 0.5, Absolute Basophils 0, PUBS MCHC 32.9 L Assessment/Plan Assessment: Patient was told about his echocardiogram results and instructed to follow-up with his construction contractor Dr. Carranza after discharge. His urinary symptoms have resolved. Microbiology reports now demonstrating enterococcus sensitive to ampicillin/vancomycin. ID method consultant mentions that he microbiology reports are also growing additional bacteria that are not reported with identification and sensitivities pending. [facility] records reviewed demonstrate the patient was maintained on ciprofloxacin during a previous admission for which she developed a similar rash. Records from Dr. Blanc's office also demonstrate patient is allergic to cefazolin and and develops a rash as well. Case was discussed with ID method consultant and it was felt that patient should be trialed on amoxicillin prior to discharge and followed off vancomycin. Patient tolerated the amoxicillin well without any signs of allergic reaction and was discharged to home with instruction to follow up with Dr. Hernandez, Dr. Parks, and Dr. Carranza as an outpatient. Obstructive Uropathy: History of renal calculi with stenting and ESWL most recently July 2015. -Monitor I&Os -Pain control -ESWL today -Ureter stent in place -Urology Consult Acute Kidney Injury: Baseline creatinine 1.28 as of 02/18/16 according to PCP records. Elevated to 2.4 on admission. Most likely secondary to acute obstruction -Avoid nephrotoxic medications such as NSAIDs for acute kidney injury -Normal Saline @ 75mL/hr -Hold ACEi until kidney function at baseline -Daily BEP Enterococcal Bacteremia: Most likely secondary to ureter obstruction and surgical manipulation. Blood cultures positive times two. Sensitivities determine that the organism is sensitive to ampicillin and vancomycin. Repeat blood cultures are thus far no growth to date. Echocardiogram does not demonstrate any vegetations on heart valves. -Vancomycin 2g IV Daily -Monitor for signs of hemodynamic instability or fever -ID Consult -Follow up culture & sensitivities New onset erythematous/pruritic rash: Patient has documented history of an allergy to cefazol, wool, and red dye. Patient developed rash after starting on Ciprofloxacin, which was subsequently discontinued. The enteric coated aspirin he was receiving in the hospital also reported contains red dye, which was converted to a non coated formula. PCP records do not demonstrate any other previously given Cephalosporin. -Benadryl 50mg PO Daily CAD/History of prior myocardial infarction Echocardiogram obtained during inpatient stay demonstrated an ejection fraction of 35-40% with hypokinetic lateral and posterior liriano. - Aspirin 81mg PO Daily - Digital Media Designer is Dr. Carranza Hyperlipidemia - atorvastatin 40mg POI Daily Pain Plan: -Acetaminophen 1g IV PRN -Morphine 2g IV Q4H PRN Pain 7-10 Diet - Healthy diet DVT prophylaxis - subcutaneous heparin Code Status - Full code Problem List: 1. Obstructive uropathy Pain Ratin Pain Location: None Pain Goal: Pain 4 or less Pain Plan: As noted in plan Tomorrow's Labs & Rationales: None ANGELA PALACIO MD 03/31/16 1258: Attending MD Review Statement Attending Statement Attending MD Statement: examined this patient, discuss w/resident/PA/POWERED BRIDGE SPECIALIST, agreed w/resident/PA/POWERED BRIDGE SPECIALIST, reviewed EMR data (avail), discussed with nursing, discussed with case mgmt, reviewed images, amended to note Attending Assessment/Plan: Patient seen and examined, feels overall much better. He had lithotripsy done by Dr. Hernandez yesterday. Currently growing Enterococcus in blood. patient remains afebrile. WBC normal. As discussed with ID, will switch abx to Oral Amoxcillin. Will complete a total of 14 day course of abx. patient has documented allergy to Cefazl\\alex but it is not confirmed. Will give him a dose of amoxcillin and watch him for few hours. If no reaction/rash, he will be discharged home on oral abx.
[2016-03-31 07:52] LABS: ABSOLUTE BASOPHIL COUNT 0 /CUMM (0.0-0.2); ABSOLUTE EOSINOPHIL COUNT 0.5 /CUMM (0.0-0.7); ABSOLUTE GRANULOCYTE CT 7.7 /CUMM (1.4-6.5); ABSOLUTE LYMPH COUNT 1.8 /CUMM (1.2-3.4); ABSOLUTE MONOCYTE COUNT 0.6 /CUMM (0.10-0.60); BASOPHIL % 0.3 % (0.0-2.0); GRANULOCYTE % 72.6 % (42.2-75.2); HEMATOCRIT 36.1 % (42-52); MEAN CORPUSCULAR HGB 29.5 PG (27.0-31.0); MEAN CORPUSCULAR HGB CONC 32.9 G/DL (33.0-37.0); MEAN CORPUSCULAR VOLUME 89.7 FL (80.0-94.0); MEAN PLATELET VOLUME 7.6 FL (7.4-10.4); PLATELET COUNT 363 /CUMM (130-400); RBC DISTRIBUTION WIDTH 14.7 % (11.5-14.5); RED BLOOD CELL CT 4.03 /CUMM (4.70-6.10); WHITE BLOOD CELL COUNT 10.7 /CUMM (4.8-10.8)
[2016-03-31 08:03] VITALS: BP 124/60
--- NOTE | 2016-03-31 12:14 | PN- Infect Dx ---
Subjective Subjective: Afebrile without complaints. He still has a mildly pruritic rash. Objective Last 24 Hrs of Vital Signs/I&O Vital Signs Date Time Temp Pulse Resp B/P Pulse O2 O2 Flow FiO2 Ox Delivery Rate 03/31 1118 74 124/60 03/31 0803 98.2 70 20 124/60 94 Room Air 03/31 0045 98.0 74 20 140/70 94 Room Air 03/30 1613 97.8 78 19 102/60 94 Intake & Output 03/31 1600 03/31 0800 03/31 0000 Intake Total 340 Output Total 925 900 Balance -925 -560 Intake, IV 100 Intake, Oral 240 Output, Urine 925 900 Physical Exam Other Physical Findings: He appears comfortable in no acute distress Skin macular papular rash persists on the trunk and extremities Back no CVA tenderness Results Last 24 Hours of Lab Results: Laboratory Tests 03/31 0630 Chemistry Sodium (137 - 145 mmol/L) 135 L Potassium (3.5 - 5.1 mmol/L) 4.1 Chloride (98 - 107 mmol/L) 105 Carbon Dioxide (22 - 30 mmol/L) 24 Anion Gap (5 - 16) 7 BUN (9 - 20 mg/dL) 19 Creatinine (0.7 - 1.2 mg/dL) 1.1 Estimated GFR (>60 ml/min) > 60 BUN/Creatinine Ratio (7 - 25 %) 17.3 Total Bilirubin (0.2 - 1.3 mg/dL) 0.8 Direct Bilirubin (< 0.4 mg/dL) 0.5 H AST (17 - 59 U/L) 176 H ALT (21 - 72 U/L) 318 H Alkaline Phosphatase (< 127 U/L) 152 H Total Protein (6.3 - 8.2 g/dL) 4.9 L Albumin (3.5 - 5.0 g/dL) 2.7 L Hematology CBC w Diff NO MAN DIFF REQ WBC (4.8 - 10.8 /CUMM) 10.7 RBC (4.70 - 6.10 /CUMM) 4.03 L Hgb (14.0 - 18.0 G/DL) 11.9 L Hct (42 - 52 %) 36.1 L MCV (80.0 - 94.0 FL) 89.7 MCH (27.0 - 31.0 PG) 29.5 RDW (11.5 - 14.5 %) 14.7 H Plt Count (130 - 400 /CUMM) 363 MPV (7.4 - 10.4 FL) 7.6 Gran % (42.2 - 75.2 %) 72.6 Lymphocytes % (20.5 - 51.1 %) 16.6 L Monocytes % (1.7 - 9.3 %) 5.5 Eosinophils % (0 - 5 %) 5.0 Basophils % (0.0 - 2.0 %) 0.3 Absolute Granulocytes (1.4 - 6.5 /CUMM) 7.7 H Absolute Lymphocytes (1.2 - 3.4 /CUMM) 1.8 Absolute Monocytes (0.10 - 0.60 /CUMM) 0.6 Absolute Eosinophils (0.0 - 0.7 /CUMM) 0.5 Absolute Basophils (0.0 - 0.2 /CUMM) 0 PUBS MCHC (33.0 - 37.0 G/DL) 32.9 L Last 24 Hours of Juan Results: Blood cultures March 27 positive for Enterococcus sensitive to Ampicillin with no other organisms isolated Blood cultures March 29 remain negative Recent Imaging Studies: Echocardiogram March 30 negative for any vegetations Assessment/Plan Impression: Doing well with temperatures and white blood cell count remaining normal on Vancomycin now Day 3 of treatment for Enterococcal sepsis of urologic origin status post cystoscopy and insertion of a left ureteral stent 4 days ago for recurrent left hydronephrosis secondary to an obstructing stone and status post left ESWL yesterday. His blood cultures are only growing Enterococcus sensitive to Ampicillin and, as he has no documented allergy to penicillins or cephalosporins, he can be changed to Amoxicillin to complete his course of antibiotics. His echocardiogram was negative for any vegetations and his repeat blood cultures are negative, making endocarditis unlikely. His eosinophils remain elevated on his differential, presumably secondary to the Ciprofloxacin, which is the most likely explanation for his rash. Suggestion: 1. Discontinue Vancomycin 2. Begin Amoxicillin 500 mg po every 8 hours to complete a 14 day course of treatment
[2016-03-31] MEDS ORDERED: DIPHENHYDRAMINE50 M1 PO (13:37)
[2016-03-31] MEDS ORDERED: AMOXICILLIN500 M3 PO (13:38)
[2016-03-31 16:00] VITALS: BP 118/62
--- NOTE | 2016-04-01 07:55 | Discharge Summary ---
Visit Information Visit Dates Admission Date: 03/27/16 Discharge Date: 03/31/16 Hospital Course Course Attending Physician: ANGELA PALACIO MD Primary Care Physician: FILI DO,ROQUE Becker Consulting Request: 1 Consulting Specialty: Urology Consulting Request: 2 Consulting Specialty: Infectious Disease Hospital Course: 61-year-old man with past medical history of nephrolithiasis status post stent in July 2015, hypertension, hyperlipidemia, and coronary artery disease, and myocardial infarction seen for evaluation on 03/27/16 for back/abdominal pain. Patient describes back pain for one week prior to admission characterizes/10, sharp/intense with associated epigastric discomfort and nausea. He was seen in his PCPs office on 03/26/16 for these complaints whom ordered a CT abdomen that demonstrated a left-sided hydronephrosis and renal stone. He was sent to the [place] ED for further evaluation. ED evaluation -Vital signs: Temp 96.6-101.8, HR 100-108, RR 18-24, BP 86-112/56-78, 94-98% on room air -CBC/BEP within normal limits -Normal saline 1 L bolus given 2 -Zofran for nausea -Tylenol for pain -IV ciprofloxacin given -Urology consult placed with Dr. Dueñas, emergent left ureter stent placed -Admitted to general medicine floor for further evaluation Obstructive left renal calculi status post ureter stent placement Patient admitted to the general medicine floor for further management of a 12 mm obstructive left ureter calculi. Urology consult placed in the ED, with subsequent stent placement. In the ED patient was started on ciprofloxacin for which he subsequently developed a pruritic/erythematous rash on his lower abdomen/groin/thighs without any lip/tongue swelling or shortness of breath. Records obtained from [facility] from his hospitalization this past summer demonstrate patient developed a similar reaction to ciprofloxacin for which it was discontinued. 2 sets of Blood cultures demonstrated growth of enterococcus sensitive to ampicillin/vancomycin. Patient was continued on vancomycin IV for conversion to oral amoxicillin to complete a total antibiotic course of 14 days. Echocardiogram obtained during admission to rule out any valvular vegetations demonstrated an ejection fraction of 35-40% with abnormal wall motion abnormalities and no obvious left-sided valvular vegetations. Prior to discharge patient underwent lithotripsy of the stone by Dr. Hernandez which he tolerated well. Acute kidney injury Records obtained from patient's primary care provider office demonstrated a baseline creatinine of 1.2 as of January 2016. Creatinine elevated to 2.4 on admission. Intravenous fluids given and patient's creatinine on discharge was 1.1. Abnormal echocardiogram Echocardiogram demonstrated an ejection fraction of 35-40% with a hypokinetic lateral and posterior wall. No valvular vegetations were identified. Patient of Dr. Carranza. Patient has a reported history of coronary artery disease with a history of myocardial infarction, details of this event are unclear. Patient was instructed to follow-up with his electric meter setter after discharge in regards these findings. Elevated liver function tests Upon initial evaluation patient was found to have elevated liver function tests on clear etiology. Daily liver function tests were assessed with minimal decline in in levels, however persistently elevated on discharge. US shows Fatty Liver. Patient was instructed to follow-up with his primary care provider Dr. Blanc for further assessment of these elevated lab values. Allergies: Coded Allergies: ciprofloxacin (Intermediate, skin rash 03/31/16) cefazolin (HIVES 08/21/15) red dye (HIVES 08/21/15) Significant Procedures: SERVICE DATE: 03/30/16- EXAM TYPE: CARD - ECHOCARDIOGRAM CONCLUSIONS The left ventricle is upper normal limits in diameter. There is moderate concentric left ventricular hypertrophy. The interventricular septum appears to contract well. The inferior wall except for the very proximal part is akinetic. The lateral and posterior liriano are hypokinetic. Overall ventricular systolic function is mild to moderately decreased. Estimated `ejection fraction is 35-40%. The left atrium is normal in size. Mild thickening/calcification of the mitral valve leaflets. Mild mitral regurgitation. Structurally normal aortic valve without significant sclerosis or stenosis. Unable to estimate the right ventricular systolic pressure. No obvious valvular vegetations are seen on this study. GEO may be useful if clinically indicated. SERVICE DATE: 03/27/16-1026 EXAM TYPE: US - US-LIMITED ABDOMEN IMPRESSION: 1. There is generalized increase in hepatic echotexture, consistent with fatty infiltration or hepatocellular disease. Please correlate clinically. No focal hepatic mass or intrahepatic biliary dilatation is seen. 2. There is mild right renal pelviectasis, without cedric hydronephrosis. 3. Ultrasound evaluation of the pancreas is limited by overlapping bowel gas. SERVICE DATE: 03/27/16-111 EXAM TYPE: RAD - [id number] VIEW IMPRESSION: Filling defect just beyond the UPJ resulting in obstruction as above. Stent placement. Operative/Inv Procedure Report Surgery Date: 03/27/16 Name of Procedure: cysto: left stent insertion Pre-Operative Diagnosis: severe left renal colic, ARF. Post-Operative Diagnosis: left hydro: 7mm stone at UPJ Estimated Blood Loss: scant Surgeon/Clay Preparation Supervisor: MD BAUTISTA, [place]-UROLOGY Anesthesia: moderate sedation Implants: 6X22 BARD ONLAY STENT Specimens: NONE Complications: NONE Condition: IMPROVED:PAIN FREE Operative Indication: ARF. LEFT RENAL COLIC WITH HX STONES. Operative/Inv Procedure Report Surgery Date: 03/30/16 Name of Procedure: left extracorporeal shockwave lithotripsy Pre-Operative Diagnosis: left renal UPJ stone Post-Operative Diagnosis: same Estimated Blood Loss: scant Surgeon/Clay Preparation Supervisor: Grupo Hernandez Anesthesia: local monitored anesthesi Complications: none Condition: stable Operative Indication: large left renal stone causing obstruction prior to stent placement Pertinent Lab Results: Hepatic function panel: 03/27/16 -AST: 283 -ALT: 367 -ALK: 220 -T bilirubin: 1.4 Hepatic function panel: 03/31/16 -AST: 176 -ALT: 318 -ALK: 152 -T bilirubin: 0.8 Disposition Summary Disposition Principal Diagnosis: Obstructive uropathy Additional Diagnosis: Acute kidney injury Transaminitis Discharge Disposition: home or self care Discharge Instructions General Discharge Information Code Status: Full Code Patient's Diet: Regular diet Patient's Activity: Return to full activity as tolerated Follow-Up Instructions/Appts: Take amoxicillin as directed to complete a 14 day total course of antibiotics. Monitor for signs of allergic reaction such as shortness of breath, swelling of your lips or tongue, or diffuse worsening rash.. Continue to take Benadryl 25 mg by mouth daily while on antibiotics. Follow-up with your primary care provider after discharge in regards to your recent hospitalization and elevated liver function tests. Follow-up with your electric meter setter after discharge in regards to your recent echocardiogram. Medications at Discharge Discharge Medications: Continue taking these medications: Metoprolol Succ XL (Toprol XL) 25 MG TAB 2 Tablet ORAL DAILY Qty = 90 Comments: Last Taken:03/31/16 Time:11:18 Ramipril (Ramipril) 5 MG CAPSULE 1 Capsule ORAL DAILY Qty = 90 Atorvastatin Calcium (Atorvastatin Calcium) 40 MG TABLET 1 Tablet ORAL DAILY Qty = 30 Comments: Last Taken:03/30/16 Time:4:45PM Aspirin (Ecotrin*) 81 MG TABLET. 1 Tablet ORAL DAILY Comments: Last Taken:03/31/16 Time:11:17AM Start taking the following new medications: Diphenhydramine HCl (Diphenhydramine HCl) 50 MG CAPSULE 25 Milligram ORAL DAILY Qty = 9 No Refills Amoxicillin (Amoxicillin) 500 MG TABLET 1 Tablet ORAL THREE TIMES DAILY Qty = 29 No Refills Comments: Last Taken:03/31/16 TIME:13:30 Copies To: DONI DO,GRUPO; RODOLFO DO,KOMAL Talavera; TATIANNA DO,JUANA Valdivia; BAUTISTA DO,JARRET; FILI DO,ROQUE Becker
== END 2016-03-31 16:15 | DRG 872 ==
LOC: ENRESERVTM → ENRESERVDT → ERH 08:11 → ENPENDDIS 09:31 → ERHI 09:31 → 2NB 09:31
PROVIDERS: Emergency Medicine; Internal Medicine Interventional Cardiology; Student in an Organized Health Care Education/Training Program; ADMIT Hospitalist
PROC: 0T778DZ Dilation of Left Ureter with Intraluminal Device, Via Natural or Artificial Opening Endoscopic (ICD-10-PCS; principal; 2016-03-27)
PROC: 0TF7XZZ Fragmentation in Left Ureter, External Approach (ICD-10-PCS; 2016-03-30)
DX: A41.81 Sepsis due to Enterococcus (principal); N17.9 Acute kidney failure, unspecified; N13.6 Pyonephrosis; Z68.41 Body mass index [BMI] 40.0-44.9, adult; I10 Essential (primary) hypertension; I25.10 Atherosclerotic heart disease of native coronary artery without angina pectoris; E78.5 Hyperlipidemia, unspecified; E66.9 Obesity, unspecified; L27.1 Localized skin eruption due to drugs and medicaments taken internally; T36.8X5A Adverse effect of other systemic antibiotics, initial encounter; I25.2 Old myocardial infarction; Z87.891 Personal history of nicotine dependence
CPT/HCPCS: 2NBSP; 36415; 74000; 81001; 82436; 87040; 87086; 87147; 93005; 93010; 93306; 96361; 96365; 96375; C2617; J0131; J0744; J1200; J1644; J2405; J3370; J3490; J7060; Q0161